=== PATIENT | male | born 1955 | race Caucasian/White ===

== ENCOUNTER 2021-07-05 14:55 | Observation (INO) ==
[2021-07-05] MEDS ORDERED: ACETAMINOPHEN 1,000 MG/100 ML VIAL IV STA (16:05)
[2021-07-05] MEDS ORDERED: fentaNYL citrate 100 MCG/2 ML VIAL IV STA (16:05)
[2021-07-05] MEDS ORDERED: fentaNYL citrate 100 MCG/2 ML VIAL IV PRN (16:05)
[2021-07-05] MEDS ORDERED: SODIUM CHLORIDE 0.9% 1000ML 1,000 ML IV ONE ×2 (16:05→18:03)
--- NOTE | 2021-07-05 16:07 | Emergency Department Note ---
History of Present Illness General Chief complaint: Abdominal Pain Stated complaint: CT SCAN FOR ABD PAIN, REFERRED BY DOCTOR Time Seen by Provider: 07/05/21 15:55 Source: patient Mode of arrival: ambulatory Limitations: no limitations History of Present Illness Provider complaint: abdominal pain Onset (ago): day(s) 6 Location: abdomen Severity: moderate Maximum Pain Intensity: 5 Current Pain Intensity: 5 Quality: + constant Relieved By: + none Exacerbated By: + eating Associated symptoms: + loss of appetite; no fever/chills or no nausea/vomiting Treatments prior to arrival: other This is a 65-year-old male presents emergency department complaining of abdominal pain. Patient states abdominal pain began last . He had had a routine appointment already scheduled with his PCP for Thursday so he mentioned this during that visit. He was started on Cipro and Flagyl for presumed diverticulitis. Patient states the pain was in his left lower abdomen, otherwise nonradiating. Patient states his last episode of diverticulitis was in 1989. Patient denies any recent change in medications or diet leading up to this. He states since the abdominal pain began on despite the use of the antibiotics his pain is continued to be worse every day. States it is constant, and seems to now radiate from the left lower quadrant around the abdomen. He does admit to mild radiation of the pain into the back. States eating and drinking liquids makes it worse. He states he is passing gas, however has not had a bowel movement since early Thursday morning which was not normal at that time unless than usual. He states his last normal bowel movement was Thursday. He states he feels bloated and distended. He denies nausea, vomiting, fevers, chills. Patient has had prior inguinal hernia repair, no other additional abdominal surgeries. He denies any pain with urination although states his urine looks darker in color. Pt seen during a time of high acuity and national emergency pandemic while wearing PPE. Home Medications Medication Instructions Recorded Confirmed Type amitriptyline 50 mg tablet 100 mg PO HS 03/22/21 07/05/21 History atorvastatin 20 mg tablet (Lipitor) 20 mg PO HS 03/22/21 07/05/21 History coenzyme Q10 100 mg capsule 200 mg PO QAM 03/22/21 07/05/21 History (CoQ-10) hydrochlorothiazide 25 mg tablet 25 mg PO QPM 03/22/21 07/05/21 History losartan 100 mg tablet 100 mg PO HS 03/22/21 07/05/21 History metformin 500 mg tablet 1,000 mg PO BID 03/22/21 07/05/21 History cjrmbpjsubhd-rlccsmki-xyfrrp tablet 1 tab PO DAILY 03/22/21 07/05/21 History omega-3 acid ethyl esters 1 gram 2 cap PO BID 03/22/21 07/05/21 History capsule (Lovaza) ciprofloxacin HCl 500 mg tablet 500 mg PO BID 07/05/21 07/05/21 History famotidine 40 mg tablet 40 mg PO DAILY 07/05/21 07/05/21 History metronidazole 500 mg tablet 500 mg PO TID 07/05/21 07/05/21 History sitagliptin 100 mg tablet (Januvia) 100 mg PO DAILY 07/05/21 07/05/21 History Allergies Allergy/AdvReac Type Severity Reaction Status Date / Time trazodone AdvReac Intermediate BAD Verified 07/05/21 15:39 DREAMS, HEART PALPITATIONS Past Med/Surg History Medical History (Updated 07/05/21 @ 23:39 by Diane Pereira DO) HTN (hypertension) Hypercholesteremia Pre-diabetes Surgical History History of cataract surgery right History of colonoscopy History of hernia surgery Family History Mother Family history of diabetes mellitus Social History Smoking Status: Never smoker Second Hand Exposure: No; Hx Alcohol Use: Yes Hx Substance Use: No Preferred Language: Polish Communication Ability: Effective 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 Beliefs That Will Affect Care: None Current Living Situation: Spouse Feels Safe at Home: Yes Assistive Devices: Denture - Upper and Denture - Lower Review of Systems A total of 10 systems reviewed and were otherwise negative All systems reviewed & are unremarkable except as noted in HPI & below Physical Exam Vital Signs Vital Signs - 24 hr 07/05/21 14:56 07/05/21 14:59 07/05/21 15:23 Temperature 36.7 C Temperature Source Oral Pulse Rate 95 H 90 Pulse Rate [Left Finger] 87 Pulse Rate from SpO2 Sensor 90 Pulse Rhythm Regular Pulse Rhythm [Left Finger] Regular Pulse Strength Normal Pulse Strength [Left Finger] Normal Respiratory Rate 20 18 18 Respiratory Effort / Characteristics Non-Labored Non-Labored Spontaneous Respiratory Depth Normal Normal Respiratory Pattern Regular Blood Pressure 159/96 H Blood Pressure Mean 117 Blood Pressure Position Sitting Blood Pressure Position [Right Arm] Lying Pulse Oximetry 96 98 97 Oxygen Delivery Method Room Air Room Air Sepsis Recent Fever Within 48 Hours No Sepsis New/Unexplained Change in Mental Status No Sepsis Action Taken by Nursing No Action Required 07/05/21 15:30 07/05/21 15:40 07/05/21 15:50 Temperature Temperature Source Pulse Rate 88 89 86 Pulse Rate [Left Finger] Pulse Rate from SpO2 Sensor 87 88 87 Pulse Rhythm Pulse Rhythm [Left Finger] Pulse Strength Pulse Strength [Left Finger] Respiratory Rate 15 20 19 Respiratory Effort / Characteristics Respiratory Depth Respiratory Pattern Blood Pressure Blood Pressure Mean Blood Pressure Position Blood Pressure Position [Right Arm] Pulse Oximetry 96 95 95 Oxygen Delivery Method Sepsis Recent Fever Within 48 Hours Sepsis New/Unexplained Change in Mental Status Sepsis Action Taken by Nursing 07/05/21 16:00 07/05/21 16:10 07/05/21 16:20 Temperature Temperature Source Pulse Rate 85 86 89 Pulse Rate [Left Finger] Pulse Rate from SpO2 Sensor 85 88 89 Pulse Rhythm Pulse Rhythm [Left Finger] Pulse Strength Pulse Strength [Left Finger] Respiratory Rate 18 20 21 Respiratory Effort / Characteristics Respiratory Depth Respiratory Pattern Blood Pressure Blood Pressure Mean Blood Pressure Position Blood Pressure Position [Right Arm] Pulse Oximetry 96 94 95 Oxygen Delivery Method Sepsis Recent Fever Within 48 Hours Sepsis New/Unexplained Change in Mental Status Sepsis Action Taken by Nursing 07/05/21 16:30 07/05/21 16:40 07/05/21 16:50 Temperature Temperature Source Pulse Rate 88 85 78 Pulse Rate [Left Finger] Pulse Rate from SpO2 Sensor 87 86 78 Pulse Rhythm Pulse Rhythm [Left Finger] Pulse Strength Pulse Strength [Left Finger] Respiratory Rate 25 H 21 16 Respiratory Effort / Characteristics Respiratory Depth Respiratory Pattern Blood Pressure Blood Pressure Mean Blood Pressure Position Blood Pressure Position [Right Arm] Pulse Oximetry 95 94 97 Oxygen Delivery Method Sepsis Recent Fever Within 48 Hours Sepsis New/Unexplained Change in Mental Status Sepsis Action Taken by Nursing 07/05/21 17:00 07/05/21 17:10 07/05/21 17:20 Temperature Temperature Source Pulse Rate 76 77 72 Pulse Rate [Left Finger] Pulse Rate from SpO2 Sensor 76 77 72 Pulse Rhythm Pulse Rhythm [Left Finger] Pulse Strength Pulse Strength [Left Finger] Respiratory Rate 19 20 22 Respiratory Effort / Characteristics Respiratory Depth Respiratory Pattern Blood Pressure 149/86 H Blood Pressure Mean 107 Blood Pressure Position Blood Pressure Position [Right Arm] Pulse Oximetry 95 96 98 Oxygen Delivery Method Sepsis Recent Fever Within 48 Hours Sepsis New/Unexplained Change in Mental Status Sepsis Action Taken by Nursing 07/05/21 17:30 07/05/21 17:40 07/05/21 17:50 Temperature Temperature Source Pulse Rate 75 75 74 Pulse Rate [Left Finger] Pulse Rate from SpO2 Sensor 75 75 74 Pulse Rhythm Pulse Rhythm [Left Finger] Pulse Strength Pulse Strength [Left Finger] Respiratory Rate 21 15 18 Respiratory Effort / Characteristics Respiratory Depth Respiratory Pattern Blood Pressure Blood Pressure Mean Blood Pressure Position Blood Pressure Position [Right Arm] Pulse Oximetry 97 97 97 Oxygen Delivery Method Sepsis Recent Fever Within 48 Hours Sepsis New/Unexplained Change in Mental Status Sepsis Action Taken by Nursing 07/05/21 18:00 07/05/21 18:10 07/05/21 18:20 Temperature Temperature Source Pulse Rate 71 71 71 Pulse Rate [Left Finger] Pulse Rate from SpO2 Sensor 71 71 71 Pulse Rhythm Pulse Rhythm [Left Finger] Pulse Strength Pulse Strength [Left Finger] Respiratory Rate 19 22 18 Respiratory Effort / Characteristics Respiratory Depth Respiratory Pattern Blood Pressure Blood Pressure Mean Blood Pressure Position Blood Pressure Position [Right Arm] Pulse Oximetry 98 97 98 Oxygen Delivery Method Sepsis Recent Fever Within 48 Hours Sepsis New/Unexplained Change in Mental Status Sepsis Action Taken by Nursing 07/05/21 18:30 07/05/21 18:40 07/05/21 19:57 Temperature Temperature Source Pulse Rate 71 74 77 Pulse Rate [Left Finger] Pulse Rate from SpO2 Sensor 72 76 78 Pulse Rhythm Pulse Rhythm [Left Finger] Pulse Strength Pulse Strength [Left Finger] Respiratory Rate 17 19 26 H Respiratory Effort / Characteristics Respiratory Depth Respiratory Pattern Blood Pressure 150/79 H 165/95 H Blood Pressure Mean 102 118 Blood Pressure Position Blood Pressure Position [Right Arm] Pulse Oximetry 98 95 99 Oxygen Delivery Method Sepsis Recent Fever Within 48 Hours Sepsis New/Unexplained Change in Mental Status Sepsis Action Taken by Nursing 07/05/21 20:00 07/05/21 20:10 07/05/21 20:20 Temperature Temperature Source Pulse Rate 78 79 77 Pulse Rate [Left Finger] Pulse Rate from SpO2 Sensor 78 79 75 Pulse Rhythm Pulse Rhythm [Left Finger] Pulse Strength Pulse Strength [Left Finger] Respiratory Rate 18 18 22 Respiratory Effort / Characteristics Respiratory Depth Respiratory Pattern Blood Pressure Blood Pressure Mean Blood Pressure Position Blood Pressure Position [Right Arm] Pulse Oximetry 97 97 96 Oxygen Delivery Method Sepsis Recent Fever Within 48 Hours Sepsis New/Unexplained Change in Mental Status Sepsis Action Taken by Nursing 07/05/21 20:30 07/05/21 20:40 07/05/21 20:50 Temperature Temperature Source Pulse Rate 73 78 77 Pulse Rate [Left Finger] Pulse Rate from SpO2 Sensor 74 77 77 Pulse Rhythm Pulse Rhythm [Left Finger] Pulse Strength Pulse Strength [Left Finger] Respiratory Rate 24 23 23 Respiratory Effort / Characteristics Respiratory Depth Respiratory Pattern Blood Pressure Blood Pressure Mean Blood Pressure Position Blood Pressure Position [Right Arm] Pulse Oximetry 97 97 100 Oxygen Delivery Method Sepsis Recent Fever Within 48 Hours Sepsis New/Unexplained Change in Mental Status Sepsis Action Taken by Nursing 07/05/21 21:00 Temperature Temperature Source Pulse Rate 74 Pulse Rate [Left Finger] Pulse Rate from SpO2 Sensor 75 Pulse Rhythm Pulse Rhythm [Left Finger] Pulse Strength Pulse Strength [Left Finger] Respiratory Rate 19 Respiratory Effort / Characteristics Respiratory Depth Respiratory Pattern Blood Pressure Blood Pressure Mean Blood Pressure Position Blood Pressure Position [Right Arm] Pulse Oximetry 98 Oxygen Delivery Method Sepsis Recent Fever Within 48 Hours Sepsis New/Unexplained Change in Mental Status Sepsis Action Taken by Nursing GENERAL: alert, well appearing, well nourished, no distress, non-toxic EYE EXAM: normal conjunctiva, PERRL and EOM's grossly intact OROPHARYNX: no exudate, no erythema, lips, buccal mucosa, and tongue normal and mucous membranes are moist NECK: supple, no nuchal rigidity, no adenopathy, non-tender LUNGS: Clear to auscultation. Normal chest wall mechanics, no w/r/r HEART: no murmurs, S1 normal and S2 normal ABDOMEN: abdomen soft, generalized tenderness with palpation, worse in the left lower quadrant, normo-active bowel sounds, no masses, no rebound or guarding. BACK: Back is symmetrical on inspection and there is no deformity, no midline tenderness, no CVA tenderness. SKIN: no rashes and no bruising UPPER EXTREMITIES: upper extremities are grossly normal. FROM, nml pulses b/l. LOWER EXTREMITIES: No pitting edema. FROM, nml pulses b/l. NEURO EXAM: Normal sensorium, cranial nerves II-XII grossly intact, normal speech, no gross weakness of arms, no gross weakness of legs. Gross sensation intact. Course Course 2002: Patient updated on results. States pain is improved. Denies any use of alcohol. Administered Medications Discontinued Medications Bisacodyl (Bisacodyl 10 Mg Supp) 10 mg PA NOW STA Stop: 07/05/21 21:31 Last Admin: 07/05/21 21:39 Dose: Not Given Documented by: [id number] Fentanyl Citrate (Fentanyl Citrate 100 Mcg/2 Ml Vial) 50 mcg IV NOW STA Stop: 07/05/21 16:06 Last Admin: 07/05/21 16:32 Dose: 50 mcg Documented by: [id number] Sodium Chloride (Nss 1000ml) 1,000 mls @ 999 mls/hr IV .Q1H1M ONE Stop: 07/05/21 17:05 Last Infusion: 07/05/21 23:22 Dose: 0 mls/hr Documented by: [id number] Admin: 07/05/21 16:32 Dose: 999 mls/hr Documented by: [id number] Acetaminophen (Ofirmev) 1,000 mg in 100 mls @ 400 mls/hr IV NOW STA Stop: 07/05/21 16:19 Last Admin: 07/05/21 16:35 Dose: 400 mls/hr Documented by: [id number] Sodium Chloride (Nss 1000ml) 1,000 mls @ 999 mls/hr IV .Q1H1M ONE Stop: 07/05/21 19:03 Last Infusion: 07/05/21 23:23 Dose: 0 mls/hr Documented by: [id number] Admin: 07/05/21 18:11 Dose: 999 mls/hr Documented by: [id number] Sodium Chloride (Nss 1000ml) 1,000 mls @ 125 mls/hr IV .Q8H KALPESH Stop: 08/04/21 20:14 Last Admin: 07/05/21 20:28 Dose: 125 mls/hr Documented by: [id number] Ioversol (Optiray 320 100ml) 94 ml IV ONCE ONE Stop: 07/05/21 19:02 Last Admin: 07/05/21 19:01 Dose: 94 ml Documented by: [id number] Medical Decision Making Differential Diagnosis Differential diagnoses includes but is not limited to gastritis, peptic ulcer disease, GERD, gallbladder disease, pancreatitis, small bowel obstruction, acute coronary syndrome, pericarditis, ischemic bowel, irritable bowel disease, irritable bowel syndrome, appendicitis, diverticulitis, malignancy, hernia, urinary tract infection, torsion, [/ectopic (if female)], perforation, trauma, infectious. Medical Records Attestation: I reviewed the patient's medical records. Home Medications Current Medication List: was personally reviewed by me Laboratory Data Attestation: I reviewed the patient's lab results. Result diagrams: 07/05/21 16:23 07/05/21 16:23 Lab Results 07/05/21 07/05/21 07/05/21 Range/Units 16:23 16:23 16:46 WBC 10.10 (4.8-10.8) K/uL RBC 5.06 (4.7-6.1) M/uL Hgb 15.1 (14.0-18.0) g/dL Hct 44.3 (42-52) % MCV 87.5 (80-100) fL MCH 29.8 (25-34) pg MCHC 34.1 (32-36) g/dL RDW Std Deviation 40.7 (36.4-46.3) fL RDW Coeff of John 12.7 (11.5-14.5) % Plt Count 316 (130-400) K/uL MPV 9.7 (7.4-10.4) fL Immature Gran % (Auto) 0.1 % Neut % (Auto) 59.3 % Lymph % (Auto) 25.0 % [place] % (Auto) 12.3 % Eos % (Auto) 2.8 % Baso % (Auto) 0.5 % Neut # (Auto) 5.99 (1.4-6.5) K/uL Lymph # (Auto) 2.53 (1.2-3.4) K/uL [place] # (Auto) 1.24 H (0.11-0.59) K/uL Eos # (Auto) 0.28 (0-0.5) K/uL Baso # (Auto) 0.05 (0-0.2) K/uL Immature Gran # (Auto) 0.01 (0.00-0.02) K/uL Sodium 137 (136-145) mmol/L Potassium 4.0 (3.5-5.1) mmol/L Chloride 99 (98-107) mmol/L Carbon Dioxide 30 (21-32) mmol/L Anion Gap 8.0 (3-11) BUN 22 H (7-18) mg/dl Creatinine 1.59 H (0.6-1.4) mg/dl Est Cr Clr Drug Dosing 54.7 ml/min Est GFR ( Amer) 51.3 ml/min Est GFR (Non-Af Amer) 44.3 ml/min BUN/Creatinine Ratio 13.5 (10-20) Glucose 185 H (70-99) mg/dl Lactate 2.9 H* (0.4-2.0) mmol/L Calcium 10.6 H (8.5-10.1) mg/dl Total Bilirubin 0.5 (0.2-1) mg/dl AST 37 (15-37) U/L ALT 44 (12-78) Alkaline Phosphatase 45 (45-117) U/L Total Protein 8.5 H (6.4-8.2) gm/dl Albumin 4.2 (3.4-5.0) gm/dl Globulin 4.3 H (2.5-4.0) gm/dl Albumin/Globulin Ratio 1.0 (0.9-2) Lipase 440 H (73-393) U/L // Range/Units 18:47 WBC (4.8-10.8) K/uL RBC (4.7-6.1) M/uL Hgb (14.0-18.0) g/dL Hct (42-52) % MCV (80-100) fL MCH (25-34) pg MCHC (32-36) g/dL RDW Std Deviation (36.4-46.3) fL RDW Coeff of John (11.5-14.5) % Plt Count (130-400) K/uL MPV (7.4-10.4) fL Immature Gran % (Auto) % Neut % (Auto) % Lymph % (Auto) % [place] % (Auto) % Eos % (Auto) % Baso % (Auto) % Neut # (Auto) (1.4-6.5) K/uL Lymph # (Auto) (1.2-3.4) K/uL [place] # (Auto) (0.11-0.59) K/uL Eos # (Auto) (0-0.5) K/uL Baso # (Auto) (0-0.2) K/uL Immature Gran # (Auto) (0.00-0.02) K/uL Sodium (136-145) mmol/L Potassium (3.5-5.1) mmol/L Chloride (98-107) mmol/L Carbon Dioxide (21-32) mmol/L Anion Gap (3-11) BUN (7-18) mg/dl Creatinine (0.6-1.4) mg/dl Est Cr Clr Drug Dosing ml/min Est GFR ( Amer) ml/min Est GFR (Non-Af Amer) ml/min BUN/Creatinine Ratio (10-20) Glucose (70-99) mg/dl Lactate 2.5 H* (0.4-2.0) mmol/L Calcium (8.5-10.1) mg/dl Total Bilirubin (0.2-1) mg/dl AST (15-37) U/L ALT (12-78) Alkaline Phosphatase (45-117) U/L Total Protein (6.4-8.2) gm/dl Albumin (3.4-5.0) gm/dl Globulin (2.5-4.0) gm/dl Albumin/Globulin Ratio (0.9-2) Lipase (73-393) U/L Imaging Data Radiologist's Impression: Abdomen/Pelvis CT 07/05/21 16:[address] WITH IV AND ORAL CONTRAST CT DOSE: 1032.81 mGy.cm HISTORY: Acute generalized abdominal pain abd pain 1 wk, recent dx diverticulitis TECHNIQUE: Multiaxial CT images of the abdomen and pelvis were performed following the IV administration of 94 cc of Optiray and oral contrast. A dose lowering technique was utilized adhering to the principles of ALARA. COMPARISON STUDY: CT abdomen and pelvis 10/18/2015 FINDINGS: The imaged inferior cardiac chambers are unremarkable. Partially imaged coronary artery calcifications. Minimal bibasilar atelectasis. No pneumatosis or pneumoperitoneum. Unremarkable spleen, gallbladder and adrenal glands. Mild inflammatory stranding involves the pancreatic head and uncinate process. No pancreatic mass or ductal dilation. Mild wall thickening of the adjacent duodenum, likely reactive. No intrahepatic or extrahepatic biliary ductal dilation. Patent portal vein. Hepatic steatosis. Mild nonspecific bilateral perinephric stranding. There are a few hypodensities of the kidneys during up to 8 mm within the inferior pole right kidney, too small to characterize however suggestive of probable cysts. No hydronephrosis. Mild prostamegaly. Partial distention of the urinary bladder with mild wall thickening. Atherosclerosis of the aorta without aneurysm. No adenopathy. No bowel obstruction. Moderate fecal retention. Colonic diverticulosis without acute diverticulitis. Small fat filled right inguinal hernia contains a noninflamed appendix. Postoperative changes of the left inguinal canal. Degenerative changes of the spine, pelvis and hips. IMPRESSION: 1. Subtle inflammatory stranding involving the pancreatic head and uncinate process is suggestive of acute pancreatitis. Correlate with serum lipase. 2. No pancreatic mass, biliary or pancreatic ductal dilation. 3. No bowel obstruction or bowel wall thickening. 4. Small fat filled right inguinal hernia contains the noninflamed appendix. 5. Additional findings as above. ACT 112: Negative or not required by law. The above report was generated using voice recognition software. It may contain grammatical, syntax or spelling errors. Electronically signed by: Arvin Subramanian M.D. 07/05/2021 7:35 PM MDM Narrative This is a 65-year-old male who presents with worsening abdominal pain in the setting of recent outpatient presumptive diagnosis of diverticulitis with ongoing treatment of Cipro/Flagyl. Patient does admit to decreased oral intake as he felt that this would increase his discomfort. He has had accompanying constipation. is concerned about his dehydration as well. Patient was still taking his antibiotics as prescribed however pain was becoming more severe and spreading across the abdomen. Labs drawn and sent revealed an elevated lactic acid level and mildly elevated lipase. CT of the abdomen and pelvis showed acute pancreatitis. No evidence of acute diverticulitis, perforation, or abscess at this time. No evidence of bowel obstruction or colitis. Patient denies any use of alcohol. No mention on CT of any abnormalities noted at the gallbladder. Patient denies any prior episodes of pancreatitis. Hyperglycemia was noted, no evidence of DKA. Due to concern for ability to stay hydrated, pain control, elevated lactic acid, and unclear etiology of the pancreatitis, discussed options for disposition with the patient and his family. Case was discussed with the hospitalist for additional inpatient evaluation and management. Pt seen during a time of high acuity and national emergency pandemic while wearing PPE. Impression & Plan Abdominal pain, Pancreatitis, GERA (acute kidney injury), Elevated lactic acid level, Hyperglycemia Discharge Plan Visit Data Chief Complaint: Abdominal Pain Stated Complaint: CT SCAN FOR ABD PAIN, REFERRED BY DOCTOR ED Provider: Diane Pereira Discharge Problem: Abdominal pain, Pancreatitis, GERA (acute kidney injury), Elevated lactic acid level, Hyperglycemia Discharge Instructions Interventions: ED Discharge Assessment Last Done: 07/05/21 22:59 Discharge Problem: Abdominal pain Qualifiers: Abdominal location: generalized Qualified Code(s): R10.84 - Generalized abdominal pain Pancreatitis Qualifiers: Chronicity: acute Pancreatitis type: unspecified pancreatitis type Acute pancreatitis complication: no infection or necrosis Qualified Code(s): K85.90 - Acute pancreatitis without necrosis or infection, unspecified
[2021-07-05 16:33] LABS: Basophils # (auto) 0.05 K/uL (0-0.2); Basophils % (auto) 0.5 %; Eosinophils # (auto) 0.28 K/uL (0-0.5); Eosinophils % (auto) 2.8 %; Hematocrit (blood only) 44.3 % (42-52); Hemoglobin 15.1 g/dL (14.0-18.0); Immature Granulocytes # (auto) 0.01 K/uL (0.00-0.02); Immature Granulocytes % (auto) 0.1 %; Lymphocytes # (auto) 2.53 K/uL (1.2-3.4); Mean Corpuscular Hemoglobin 29.8 pg (25-34); Mean Corpuscular Hgb Conc 34.1 g/dL (32-36); Mean Corpuscular Volume 87.5 fL (80-100); Mean Platelet Volume 9.7 fL (7.4-10.4); Monocytes # (auto) 1.24 K/uL (0.11-0.59); Monocytes % (auto) 12.3 %; Neutrophils # (auto) 5.99 K/uL (1.4-6.5); Neutrophils % (auto) 59.3 %; Platelet Count 316 K/uL (130-400); RDW Coefficient of Variation 12.7 % (11.5-14.5); RDW Standard Deviation 40.7 fL (36.4-46.3); Red Blood Count 5.06 M/uL (4.7-6.1)
[2021-07-05 16:49] LABS: Albumin Level 4.2 gm/dl (3.4-5.0); BUN Creatinine Ratio 13.5 (10-20); Calcium 10.6 mg/dl (8.5-10.1); Creatinine Clr Calc Pharmacy 54.7 ml/min; Est GFR (African American) 51.3 ml/min; Est GFR (Non-African American) 44.3 ml/min
[2021-07-05 16:52] LABS: Bilirubin,Total 0.5 mg/dl (0.2-1); Globulin 4.3 gm/dl (2.5-4.0); Total Protein 8.5 gm/dl (6.4-8.2)
[2021-07-05 18:25] LABS: Appearance Urine Clear (Clear); Bilirubin Urine Negative (Negative); Blood Urine Negative (Negative); Color Urine Dark Yellow; Glucose Urine UA 3+ (Negative); Ketones Urine Trace (Negative); Leukocyte Esterase Urine Negative (Negative); Nitrite Urine Negative (Negative); Protein Urine Negative (Negative); Specific Gravity Urine 1.026 (1.000-1.030); Urobilinogen Urine Negative (Negative); pH Urine 5.5 (4.5-7.5)
[2021-07-05] MEDS ORDERED: OPTIRAY 320 100ml IV ONE (19:01)
--- NOTE | 2021-07-05 19:36 | CT Scan Report ---
ABDOMEN AND PELVIS CT WITH IV AND ORAL CONTRAST CT DOSE: 1032.81 mGy.cm HISTORY: Acute generalized abdominal pain abd pain 1 wk, recent dx diverticulitis TECHNIQUE: Multiaxial CT images of the abdomen and pelvis were performed following the IV administrat ion of 94 cc of Optiray and oral contrast. A dose lowering technique was utilized adhering to the pr inciples of NAEEM. COMPARISON STUDY: CT abdomen and pelvis 10/18/2015 FINDINGS: The imaged inferior cardiac chambers are unremarkable. Partially imaged coronary artery calcification s. Minimal bibasilar atelectasis. No pneumatosis or pneumoperitoneum. Unremarkable spleen, gallbladde r and adrenal glands. Mild inflammatory stranding involves the pancreatic head and uncinate process. No pancreatic mass or ductal dilation. Mild wall thickening of the adjacent duodenum, likely reactive . No intrahepatic or extrahepatic biliary ductal dilation. Patent portal vein. Hepatic steatosis. Mild nonspecific bilateral perinephric stranding. There are a few hypodensities of the kidneys during up to 8 mm within the inferior pole right kidney, too small to characterize however suggestive of pr obable cysts. No hydronephrosis. Mild prostamegaly. Partial distention of the urinary bladder with mi ld wall thickening. Atherosclerosis of the aorta without aneurysm. No adenopathy. No bowel obstructio n. Moderate fecal retention. Colonic diverticulosis without acute diverticulitis. Small fat filled ri ght inguinal hernia contains a noninflamed appendix. Postoperative changes of the left inguinal canal . Degenerative changes of the spine, pelvis and hips. IMPRESSION: 1. Subtle inflammatory stranding involving the pancreatic head and uncinate process is suggestive of acute pancreatitis. Correlate with serum lipase. 2. No pancreatic mass, biliary or pancreatic ductal dilation. 3. No bowel obstruction or bowel wall thickening. 4. Small fat filled right inguinal hernia contains the noninflamed appendix. 5. Additional findings as above. ACT 112: Negative or not required by law. The above report was generated using voice recognition software. It may contain grammatical, syntax o r spelling errors. Electronically signed by: Arvin Subramanian M.D. 07/05/2021 7:35 PM
[2021-07-05] MEDS ORDERED: SODIUM CHLORIDE 0.9% 1000ML 1,000 ML IV SCH (20:15)
[2021-07-05] MEDS ORDERED: POLYETHYLENE (MIRALAX) 17 GM PACK PO PRN (21:06)
[2021-07-05] MEDS ORDERED: ONDANSETRON INJ 2 MG/ML 2 ML VIAL IV PRN (21:06)
[2021-07-05] MEDS ORDERED: bisacodyL 10 MG SUPP PR STA (21:30)
--- NOTE | 2021-07-05 21:39 | History & Physical Report ---
Date of Service July 05, 2021 Assessment & Plan (1) Abdominal pain: Plan: -Fecal retention versus acute pancreatitis versus diverticulitis -Pain controlled with fentanyl in the ED, transition to p.o. Tylenol for mild to moderate pain, IV morphine for severe pain. -Per history seems that abdominal pain is most likely associated with fecal retention noted in abdominal CT in ED. -Patient had large bowel movement in ED which did provide some relief. -N.p.o. given there was evidence on CT of acute pancreatitis, see below -IV hydration with lactated Ringer's at 125 mL/h, stop after 2 bags. (2) Acute pancreatitis: Plan: -Evidence of acute pancreatitis found on CT, mildly elevated lipase at 440, and abdominal pain that could be suggestive of pancreatitis -N.p.o. with bowel rest -IV hydration with lactated Ringer's at 125 mL/h, stop after 2 bags -Trend a.m. CBC and BMP (3) Diverticulosis: Plan: -There is no evidence of diverticulitis on CT performed in ED -Discontinued ciprofloxacin and Flagyl (4) Diabetes mellitus: Plan: -Last known A1c to be 8 -Discontinued Metformin and Januvia, began 5 units Lantus twice daily with sliding scale (5) Hypercholesteremia: Plan: -Continue atorvastatin (6) HTN (hypertension): Plan: -Continue losartan and hydrochlorothiazide (7) High serum lactate: Plan: -At this time suspect to be due to decreased oral intake -Hold Metformin while in hospital -Recheck lactate in a.m. after receiving fluids Dispo: MedSurg Diet: N.p.o. DVT prophylaxis: SCDs Code: Full code History of Present Illness Chief Complaint: Abdominal pain Primary Care Provider: Isidro Tomas Patient is a 65-year-old male with past medical history of DM 2, BPH, diverticulosis, hypertension, and hyperlipidemia being admitted to the hospital for observation for the chief complaint of abdominal pain. Patient reports that for the past week he has been having progressively worsening abdominal pain that is localized to the left lower quadrant He had gone to his PCP to be evaluated where he was clinically diagnosed with diverticulitis and was started on Cipro and Flagyl. He noticed that on Thursday that his pain was getting worse even after starting the antibiotics. Yesterday he reported that he noticed he had not had a bowel movement since Thursday and had taken 2 senna tablets to try make himself go to the bathroom. He reports his abdominal pain does get worse with food and it is localized to the left lower quadrant. Reports that when he came to the ED his abdominal pain was a 7-8 out of 10 and is currently a 4 out of 10 after receiving fentanyl. Patient does report a history of diverticulosis with his most recent episode of diverticulitis being in 1989. He reports he has not changed his diet and has not started any new medications other than the antibiotics he was prescribed by Dr. Tomas. He does report that he does have frequent bouts of constipation and notes that he consistently does not have a bowel movement every day. His regular schedule is upwards to every other day. Denies any recent bloody stools, fever, chills, nausea, vomiting, chest pain, shortness of breath. Patient reports no other complaints at this time. Allergies Allergy/AdvReac Type Severity Reaction Status Date / Time trazodone AdvReac Intermediate BAD Verified 07/05/21 15:39 DREAMS, HEART PALPITATIONS Home Medications Medication Instructions Recorded Confirmed Type amitriptyline 50 mg tablet 100 mg PO HS 03/22/21 07/05/21 History atorvastatin 20 mg tablet (Lipitor) 20 mg PO HS 03/22/21 07/05/21 History coenzyme Q10 100 mg capsule 200 mg PO QAM 03/22/21 07/05/21 History (CoQ-10) hydrochlorothiazide 25 mg tablet 25 mg PO QPM 03/22/21 07/05/21 History losartan 100 mg tablet 100 mg PO HS 03/22/21 07/05/21 History metformin 500 mg tablet 1,000 mg PO BID 03/22/21 07/05/21 History blyjclapzxbl-ouaavfcd-hprngg tablet 1 tab PO DAILY 03/22/21 07/05/21 History omega-3 acid ethyl esters 1 gram 2 cap PO BID 03/22/21 07/05/21 History capsule (Lovaza) ciprofloxacin HCl 500 mg tablet 500 mg PO BID 07/05/21 07/05/21 History famotidine 40 mg tablet 40 mg PO DAILY 07/05/21 07/05/21 History metronidazole 500 mg tablet 500 mg PO TID 07/05/21 07/05/21 History sitagliptin 100 mg tablet (Januvia) 100 mg PO DAILY 07/05/21 07/05/21 History Past Med/Surg History Medical History (Updated 07/05/21 @ 22:03 by Amari Garcia DO) HTN (hypertension) Hypercholesteremia Pre-diabetes Surgical History History of cataract surgery right History of colonoscopy History of hernia surgery Family History Mother Family history of diabetes mellitus Social History Smoking Status: Never smoker Second Hand Exposure: No; Hx Alcohol Use: Yes Hx Substance Use: No Preferred Language: Malian Communication Ability: Effective Barrel Lathe Operator Required: No Beliefs That Will Affect Care: None Current Living Situation: Spouse Feels Safe at Home: Yes Assistive Devices: Denture - Upper and Denture - Lower Review of Systems Review of Systems: All systems reviewed & are unremarkable except as noted in HPI & below Physical Exam Constitutional: well developed, well nourished and cooperative; no acute distress Eyes: + anicteric sclerae Neck: trachea midline, no thyromegaly Respiratory: normal respiratory effort, lungs clear to auscultation Cardiovascular: RRR, no murmur, no edema Gastrointestinal (Abdomen): Percussion/Palpation: no hepatosplenomegaly Tenderness to palpation of the left lower quadrant with associated dullness to percussion. Abdomen is soft diffusely. There are no peritoneal signs present. Dumont sign negative. No tenderness appreciated at the McBurney point. Skin: no rashes, warm and dry Neurologic: moves all extremities Psychiatric: A+Ox3, euthymic affect Results & Data Results & Data ([facility]) Vital Signs (Past 12 Hours) Vital Signs Temp Pulse Pulse Resp BP Pulse Ox 07/05/21 18:40 74 19 150/79 H 95 07/05/21 18:30 71 17 98 07/05/21 18:20 71 18 98 07/05/21 18:10 71 22 97 07/05/21 18:00 71 19 98 07/05/21 17:50 74 18 97 07/05/21 17:40 75 15 97 07/05/21 17:30 75 21 97 07/05/21 17:20 72 22 98 07/05/21 17:10 77 20 149/86 H 96 07/05/21 17:00 76 19 95 07/05/21 16:50 78 16 97 07/05/21 16:40 85 21 94 07/05/21 16:30 88 25 H 95 07/05/21 16:20 89 21 95 07/05/21 16:10 86 20 94 07/05/21 16:00 85 18 96 07/05/21 15:50 86 19 95 07/05/21 15:40 89 20 95 07/05/21 15:30 88 15 96 07/05/21 15:23 90 18 97 07/05/21 14:59 36.7 C 95 H 18 159/96 H 98 07/05/21 14:56 87 20 96 Laboratory Results Laboratory Results WBC 10.10 K/uL (4.8-10.8) 07/05/21 16:23 RBC 5.06 M/uL (4.7-6.1) 07/05/21 16:23 Hgb 15.1 g/dL (14.0-18.0) 07/05/21 16:23 Hct 44.3 % (42-52) 07/05/21 16:23 MCV 87.5 fL (80-100) 07/05/21 16:23 MCH 29.8 pg (25-34) 07/05/21 16:23 MCHC 34.1 g/dL (32-36) 07/05/21 16:23 RDW Std Deviation 40.7 fL (36.4-46.3) 07/05/21 16:23 RDW Coeff of John 12.7 % (11.5-14.5) 07/05/21 16:23 Plt Count 316 K/uL (130-400) 07/05/21 16:23 MPV 9.7 fL (7.4-10.4) 07/05/21 16:23 Immature Gran % (Auto) 0.1 % 07/05/21 16:23 Neut % (Auto) 59.3 % 07/05/21 16:23 Lymph % (Auto) 25.0 % 07/05/21 16:23 Casey % (Auto) 12.3 % 07/05/21 16:23 Eos % (Auto) 2.8 % 07/05/21 16:23 Baso % (Auto) 0.5 % 07/05/21 16:23 Neut # (Auto) 5.99 K/uL (1.4-6.5) 07/05/21 16:23 Lymph # (Auto) 2.53 K/uL (1.2-3.4) 07/05/21 16:23 Casey # (Auto) 1.24 K/uL (0.11-0.59) H 07/05/21 16:23 Eos # (Auto) 0.28 K/uL (0-0.5) 07/05/21 16:23 Baso # (Auto) 0.05 K/uL (0-0.2) 07/05/21 16:23 Immature Gran # (Auto) 0.01 K/uL (0.00-0.02) 07/05/21 16:23 Sodium 137 mmol/L (136-145) 07/05/21 16:23 Potassium 4.0 mmol/L (3.5-5.1) 07/05/21 16:23 Chloride 99 mmol/L (98-107) 07/05/21 16:23 Carbon Dioxide 30 mmol/L (21-32) 07/05/21 16:23 Anion Gap 8.0 (3-11) 07/05/21 16:23 BUN 22 mg/dl (7-18) H 07/05/21 16:23 Creatinine 1.59 mg/dl (0.6-1.4) H 07/05/21 16:23 Est Cr Clr Drug Dosing 54.7 ml/min 07/05/21 16:23 Est GFR ( Amer) 51.3 ml/min 07/05/21 16:23 Est GFR (Non-Af Amer) 44.3 ml/min 07/05/21 16:23 BUN/Creatinine Ratio 13.5 (10-20) 07/05/21 16:23 Glucose 185 mg/dl (70-99) H 07/05/21 16:23 Lactate 2.5 mmol/L (0.4-2.0) H* 07/05/21 18:47 Calcium 10.6 mg/dl (8.5-10.1) H 07/05/21 16:23 Total Bilirubin 0.5 mg/dl (0.2-1) 07/05/21 16:23 AST 37 U/L (15-37) 07/05/21 16:23 ALT 44 (12-78) 07/05/21 16:23 Alkaline Phosphatase 45 U/L (45-117) 07/05/21 16:23 Total Protein 8.5 gm/dl (6.4-8.2) H 07/05/21 16:23 Albumin 4.2 gm/dl (3.4-5.0) 07/05/21 16:23 Globulin 4.3 gm/dl (2.5-4.0) H 07/05/21 16:23 Albumin/Globulin Ratio 1.0 (0.9-2) 07/05/21 16:23 Lipase 440 U/L (73-393) H 07/05/21 16:23 Urine Color Dark Yellow 07/05/21 Unknown Urine Appearance Clear (Clear) 07/05/21 Unknown Urine pH 5.5 (4.5-7.5) 07/05/21 Unknown Ur Specific [place] 1.026 (1.000-1.030) 07/05/21 Unknown Urine Protein Negative (Negative) 07/05/21 Unknown Urine Glucose (UA) 3+ (Negative) H 07/05/21 Unknown Urine Ketones Trace (Negative) H 07/05/21 Unknown Urine Blood Negative (Negative) 07/05/21 Unknown Urine Nitrite Negative (Negative) 07/05/21 Unknown Urine Bilirubin Negative (Negative) 07/05/21 Unknown Urine Urobilinogen Negative (Negative) 07/05/21 Unknown Ur Leukocyte Esterase Negative (Negative) 07/05/21 Unknown SARS-CoV-2, RNA, NAAT NEGATIVE (NEGATIVE) 07/05/21 Unknown Impressions Abdomen/Pelvis CT 07/05/21 16:[address] WITH IV AND ORAL CONTRAST CT DOSE: 1032.81 mGy.cm HISTORY: Acute generalized abdominal pain abd pain 1 wk, recent dx diverticulitis TECHNIQUE: Multiaxial CT images of the abdomen and pelvis were performed following the IV administration of 94 cc of Optiray and oral contrast. A dose lowering technique was utilized adhering to the principles of ALARA. COMPARISON STUDY: CT abdomen and pelvis 10/18/2015 FINDINGS: The imaged inferior cardiac chambers are unremarkable. Partially imaged coronary artery calcifications. Minimal bibasilar atelectasis. No pneumatosis or pneumoperitoneum. Unremarkable spleen, gallbladder and adrenal glands. Mild inflammatory stranding involves the pancreatic head and uncinate process. No pancreatic mass or ductal dilation. Mild wall thickening of the adjacent duodenum, likely reactive. No intrahepatic or extrahepatic biliary ductal dilation. Patent portal vein. Hepatic steatosis. Mild nonspecific bilateral perinephric stranding. There are a few hypodensities of the kidneys during up to 8 mm within the inferior pole right kidney, too small to characterize however suggestive of probable cysts. No hydronephrosis. Mild prostamegaly. Partial distention of the urinary bladder with mild wall thickening. Atherosclerosis of the aorta without aneurysm. No adenopathy. No bowel obstruction. Moderate fecal retention. Colonic diverticulosis without acute diverticulitis. Small fat filled right inguinal hernia contains a noninflamed appendix. Postoperative changes of the left inguinal canal. Degenerative changes of the spine, pelvis and hips. IMPRESSION: 1. Subtle inflammatory stranding involving the pancreatic head and uncinate process is suggestive of acute pancreatitis. Correlate with serum lipase. 2. No pancreatic mass, biliary or pancreatic ductal dilation. 3. No bowel obstruction or bowel wall thickening. 4. Small fat filled right inguinal hernia contains the noninflamed appendix. 5. Additional findings as above. ACT 112: Negative or not required by law. The above report was generated using voice recognition software. It may contain grammatical, syntax or spelling errors. Electronically signed by: Arvin Subramanian M.D. 07/05/2021 7:35 PM Code Status & VTE Plan VTE Prophylaxis Plan VTE Prophylaxis will be ordered: Yes Supervising Physician Co-Signing Physician Notes Patient seen and examined, chart reviewed, case discussed with Dr. Garcia and I agree with the assessment and plan as documented above. In brief, patient is a 65yo male presenting with abdominal pain - progressive over the last week - mostly in LLQ. He was started on Cipro and Flagyl for presumed diverticulitis. Pain has been worsening. Patient reports constipation as well. He denies fever, chills, nausea, vomiting. On exam he is afebrile, HD stable, NAD. Resting comfortably Skin - warm, dry, intact HEENT - NC/AT, PERRL, MMM, Neck supple Heart - +S1/S2, regular Lungs - CTA Abd - flat, normoactive bowel sounds, soft, tender in lower abdomen with deep palpation, no rebound/guarding/peritoneal signs, no epigastric or RUQ pain Ext - no edema Labs and images reviewed Assessment/Plan - -NPO, IVF and electrolyte repletion -Bowel regimen -Pain control -Will hold off on additional antibiotics at this time -Elevated lactate - patient is afebrile, HD stable and non-toxic, non-septic. CT with no evidence of bowel ischemia. Uncertain etiology of elevated lactate. ?Metformin use? 2.9 --> 2.5 after IVF. Repeat level in AM.
[2021-07-05] MEDS ORDERED: GLUCOSE 10 TABS/TUBE PO PRN (22:56)
[2021-07-05] MEDS ORDERED: CARBOHYDRATES FOR HYPOGLYCEMIA PO PRN (22:56)
[2021-07-05] MEDS ORDERED: DEXTROSE 50% 50 ML SYRINGE IV PRN (22:56)
[2021-07-05] MEDS ORDERED: ACETAMINOPHEN 325 MG TAB PO PRN (22:56)
[2021-07-05] MEDS ORDERED: GLUCOSE 40% GEL 15 GM TUBE PO PRN (22:56)
[2021-07-05] MEDS ORDERED: GLUCAGON FOR INJ 1 MG VIAL SQ PRN (22:56)
--- NOTE | 2021-07-05 23:21 | Billing Data ---
Date of Service July 05, 2021 Coding Level of Care Code INT OBSERVATION CARE 70M LVL 3
[2021-07-06] MEDS: LACTATED RINGER'S 1,000 ML IV SCH ×2 (00:09→08:42)
[2021-07-06] MEDS: INSULIN ASPART PER UNIT SC SCH ×5 (00:18→21:06)
[2021-07-06] MEDS: MoRPHine SULFATE 2 MG/ML CARP IV PRN ×2 (02:00→08:42)
[2021-07-06 07:53] LABS: Hematocrit (blood only) 37.1 % (42-52); Hemoglobin 12.6 g/dL (14.0-18.0); Mean Corpuscular Hemoglobin 29.9 pg (25-34); Mean Corpuscular Volume 87.9 fL (80-100); Mean Platelet Volume 9.5 fL (7.4-10.4); Platelet Count 230 K/uL (130-400); RDW Coefficient of Variation 12.7 % (11.5-14.5); Red Blood Count 4.22 M/uL (4.7-6.1); White Blood Count 7.86 K/uL (4.8-10.8)
[2021-07-06] MEDS: INSULIN GLARGINE SOLOSTAR 100 UNITS/ML 3 ML PEN SC SCH ×2 (08:28→21:08)
[2021-07-06] MEDS: FAMOTIDINE 40 MG TABLET PO SCH (08:29)
[2021-07-06 08:48] LABS: BUN Creatinine Ratio 12.8 (10-20); Calcium 8.7 mg/dl (8.5-10.1); Creatinine Clr Calc Pharmacy 70.7 ml/min; Est GFR (African American) 69.3 ml/min; Est GFR (Non-African American) 59.8 ml/min; Potassium 3.8 mmol/L (3.5-5.1)
[2021-07-06] MEDS ORDERED: Nursing to Pharmacy Communication SCH (11:00)
--- NOTE | 2021-07-06 15:39 | Hospitalist Progress Note ---
Date of Service July 06, 2021 Assessment & Plan (1) Abdominal pain: Plan: -Most likely due to constipation and pancreatitis -CT shows evidence of fecal retension, now resolved after having a bowel movement -Abdominal pain is now resolved (2) Acute pancreatitis: Plan: -Slight elevation in serum lipase -On IV fluids -diet advanced as tolerated (3) Diverticulosis: Plan: -There is no evidence of diverticulitis on CT performed in ED -Discontinued ciprofloxacin and Flagyl (4) Diabetes mellitus: Plan: -Last known A1c to be 8 -Discontinued Metformin and Januvia, began 5 units Lantus twice daily with sliding scale (5) Hypercholesteremia: Plan: -Continue atorvastatin (6) HTN (hypertension): Plan: -Continue losartan and hydrochlorothiazide (7) High serum lactate: Plan: -At this time suspect to be due to decreased oral intake -Hold Metformin while in hospital -Recheck lactate in a.m. after receiving fluids Dispo: MedSurg Diet: advance as tolerated DVT prophylaxis: SCDs Code: Full code Plan: discharge home in the next 24 hrs Admission and Anticipated Discharge Date Admission Date: July 05, 2021 Subjective patient seen and examined, abdominal pain has resolved Review of Systems Review of Systems: All systems reviewed are negative, apart from the ones contained in the history. Physical Exam Physical Exam: The patient is awake, alert and oriented 3, well developed and well nourished, normocephalic and atraumatic, lying in bed and in no acute distress. HEENT--PERRL, EOMI, mucous membranes and oropharynx mildly dry Neck--supple. No JVD. No bruits. Thyroid normal, trachea midline, no adenopathy. Heart--normal S1 and S2. No murmurs, rubs or gallops. Lungs--clear bilaterally, no respiratory distress, no accessory muscle use. Abdomen--normal bowel sounds and soft. Mild epigastric and left sided abdominal pain Extremities--no cyanosis or clubbing. No edema. Dermatologic--normal skin turgor, normal color, no abnormal lymph nodes, no rash. Neurologic--cranial nerves II through XII grossly intact. Rheumatologic--normal range of motion. Psychiatric--normal affect. Results & Data Results & Data ([facility]) Vital Signs (Past 12 Hours) Vital Signs Temp Pulse Resp BP Pulse Ox 07/06/21 15:32 98.2 F 69 20 132/68 96 07/06/21 08:12 98.6 F 68 20 138/77 93 PG Care Time/CCT Total # of Minutes Spent Total Time Spent with Patient: Total time spent is greater than 50% in coordination of care (as documented) at patient's floor/unit and/or counseling patient: Coding Level of Care Code 47156 Subseq Obs Care Lvl 2 Diagnoses Abdominal pain R10.84 Abdominal location: generalized Acute pancreatitis K85.90 Diverticulosis K57.90 Diabetes mellitus E11.9 Hypercholesteremia E78.00 HTN (hypertension) I10 High serum lactate R79.89 Time Spent (min) 35 (1) Abdominal pain Abdominal location: generalized Qualified Code(s): R10.84 - Generalized abdominal pain
[2021-07-06] MEDS ORDERED: AMITRIPTYLINE HCL 100 MG TAB PO SCH (21:00)
[2021-07-06] MEDS ORDERED: hydroCHLOROthiazide 25 MG TAB PO SCH (21:00)
[2021-07-06] MEDS ORDERED: LOSARTAN POTASSIUM 50 MG TAB PO SCH (21:00)
[2021-07-06] MEDS ORDERED: ATORVASTATIN 20 MG TAB PO SCH (21:00)
[2021-07-07] MEDS: MoRPHine SULFATE 2 MG/ML CARP IV PRN (02:11)
[2021-07-07 06:59] LABS: Hematocrit (blood only) 38.5 % (42-52); Hemoglobin 13.3 g/dL (14.0-18.0); Mean Corpuscular Hemoglobin 29.7 pg (25-34); Mean Corpuscular Hgb Conc 34.5 g/dL (32-36); Mean Corpuscular Volume 85.9 fL (80-100); Mean Platelet Volume 9.4 fL (7.4-10.4); Platelet Count 239 K/uL (130-400); RDW Coefficient of Variation 12.5 % (11.5-14.5); RDW Standard Deviation 39.6 fL (36.4-46.3); Red Blood Count 4.48 M/uL (4.7-6.1); White Blood Count 8.82 K/uL (4.8-10.8)
[2021-07-07 07:30] LABS: BUN Creatinine Ratio 8.7 (10-20); Calcium 9.6 mg/dl (8.5-10.1); Creatinine Clr Calc Pharmacy 71.9 ml/min; Est GFR (African American) 70.7 ml/min
[2021-07-07] MEDS: FAMOTIDINE 40 MG TABLET PO SCH (08:36)
[2021-07-07] MEDS: INSULIN ASPART PER UNIT SC SCH ×2 (08:48→12:08)
[2021-07-07] MEDS: INSULIN GLARGINE SOLOSTAR 100 UNITS/ML 3 ML PEN SC SCH (08:50)
--- NOTE | 2021-07-07 10:04 | Discharge Summary ---
Date of Service July 07, 2021 Admission HPI Per Admitting Provider Patient is a 65-year-old male with past medical history of DM 2, BPH, diverticulosis, hypertension, and hyperlipidemia being admitted to the hospital for observation for the chief complaint of abdominal pain. Patient reports that for the past week he has been having progressively worsening abdominal pain that is localized to the left lower quadrant He had gone to his PCP to be evaluated where he was clinically diagnosed with diverticulitis and was started on Cipro and Flagyl. He noticed that on Thursday that his pain was getting worse even after starting the antibiotics. Yesterday he reported that he noticed he had not had a bowel movement since Thursday and had taken 2 senna tablets to try make himself go to the bathroom. He reports his abdominal pain does get worse with food and it is localized to the left lower quadrant. Reports that when he came to the ED his abdominal pain was a 7-8 out of 10 and is currently a 4 out of 10 after receiving fentanyl. Patient does report a history of diverticulosis with his most recent episode of diverticulitis being in 1989. He reports he has not changed his diet and has not started any new medications other than the antibiotics he was prescribed by Dr. Tomas. He does report that he does have frequent bouts of constipation and notes that he consistently does not have a bowel movement every day. His regular schedule is upwards to every other day. Denies any recent bloody stools, fever, chills, nausea, vomiting, chest pain, shortness of breath. Patient reports no other complaints at this time. Principal Diagnosis constipation, acute pancreatitis Discharge Exam The patient is awake, alert and oriented 3, well developed and well nourished, normocephalic and atraumatic, lying in bed and in no acute distress. HEENT--PERRL, EOMI, mucous membranes and oropharynx mildly dry Neck--supple. No JVD. No bruits. Thyroid normal, trachea midline, no a denopathy. Heart--normal S1 and S2. No murmurs, rubs or gallops. Lungs--clear bilaterally, no respiratory distress, no accessory muscle use. Abdomen--normal bowel sounds and soft. Mild epigastric and left sided abdominal pain Extremities--no cyanosis or clubbing. No edema. Dermatologic--normal skin turgor, normal color, no abnormal lymph nodes, no rash. Neurologic--cranial nerves II through XII grossly intact. Rheumatologic--normal range of motion. Psychiatric--normal affect. Discharge Data Allergies Allergy/AdvReac Type Severity Reaction Status Date / Time trazodone AdvReac Intermediate BAD Verified 07/05/21 15:39 DREAMS, HEART PALPITATIONS Ordered Studies 07/05/21 16:06 CT Abd and Pelvis [CT abd pelvis oral and IV con] Stat Hospital Course (1) Abdominal pain: -Most likely due to constipation and pancreatitis -CT shows evidence of fecal retension, now resolved after having a bowel movement -Abdominal pain is now resolved (2) Acute pancreatitis: -Serum lipase now wnl -diet advanced as tolerated (3) Diverticulosis: -There is no evidence of diverticulitis on CT performed in ED -Discontinued ciprofloxacin and Flagyl (4) Diabetes mellitus: -Last known A1c to be 8 -Discontinued Metformin and Januvia, began 5 units Lantus twice daily with sliding scale (5) Hypercholesteremia: -Continue atorvastatin (6) HTN (hypertension): -Continue losartan and hydrochlorothiazide (7) High serum lactate: -At this time suspect to be due to decreased oral intake -Hold Metformin while in hospital -Recheck lactate in a.m. after receiving fluids Dispo: MedSurg Diet: advance as tolerated DVT prophylaxis: SCDs Code: Full code discharge home in the next 24 hrs Total Time Total Time Spent Total Time Spent (In Minutes): 35 Discharge Plan Discharge Items Patient Disposition: Home - Self-Care Reason For Visit: CT SCAN FOR ABD PAIN, REFERRED BY DOCTOR Discharge Diagnosis: constipation, acute pancreatitis Condition on Discharge: Good Activity: Resume your previous activity Non-emergency contact: Primary Care Provider Call non-emergency contact if: you have any medication questions and your symptoms worsen Follow-up/Referrals: Isidro Tomas [Primary Care Provider] - Diet: Regular Addtl Attending Provider Instructions: please make appointment to follow up with your regular PCP Pending Studies at Discharge: No Stand-Alone Forms: My [facility] [employer], Smoking Cessation Medications and DC Order Prescriptions: Continued metformin 500 mg Tablet 1,000 mg PO BID RF: 0 atorvastatin [Lipitor] 20 mg Tablet 20 mg PO HS RF: 0 amitriptyline 50 mg Tablet 100 mg PO HS RF: 0 hydrochlorothiazide 25 mg Tablet 25 mg PO QPM RF: 0 losartan 100 mg Tablet 100 mg PO HS RF: 0 qcquwrvccepm-lhfcmfzy-zczvni Tablet 1 tab PO DAILY RF: 0 coenzyme Q10 [CoQ-10] 100 mg Capsule 200 mg PO QAM RF: 0 omega-3 acid ethyl esters [Lovaza] 1 gram Capsule 2 cap PO BID RF: 0 metronidazole 500 mg tablet 500 mg PO TID RF: 0 Januvia 100 mg tablet 100 mg PO DAILY RF: 0 famotidine 40 mg tablet 40 mg PO DAILY RF: 0 Discontinued ciprofloxacin HCl 500 mg tablet 500 mg PO BID RF: 0 Discharge Orders: Discharge Order (Routine); Ordered 07/07/21 Ordered By: Gilbert Kaur Admission Data Admit Date/Time: 07/05/21 21:07 Attending Provider: Gilbert Kaur Admit Provider: Amari Garcia Primary Care Provider: Isidro Tomas Coding Level of Care Code D/C DAY MANAGEMENT >30 MINS Diagnoses Abdominal pain R10.84 Abdominal location: generalized Acute pancreatitis K85.90 Diverticulosis K57.90 Diabetes mellitus E11.9 Hypercholesteremia E78.00 HTN (hypertension) I10 High serum lactate R79.89 Time Spent (min) 35
== END 2021-07-07 14:20 | disposition home or self-care (01) ==
LOC: EDINP 14:55 → ED 14:55 → SUATTDRO 21:07 → 2N 22:59
DX: K57.90 Diverticulosis of intestine, part unspecified, without perforation or abscess without bleeding; R79.89 Other specified abnormal findings of blood chemistry; Z20.822 Contact with and (suspected) exposure to COVID-19; Z79.899 Other long term (current) drug therapy; K85.90 Acute pancreatitis without necrosis or infection, unspecified; E11.9 Type 2 diabetes mellitus without complications; E78.00 Pure hypercholesterolemia, unspecified; Z79.84 Long term (current) use of oral hypoglycemic drugs; I10 Essential (primary) hypertension

== ENCOUNTER 2022-10-29 19:02 | Inpatient (IN) ==
--- NOTE | 2022-10-29 19:33 | XRay Report ---
SINGLE VIEW CHEST CLINICAL HISTORY: Atypical chest pain. FINDINGS: An AP, portable, upright chest radiograph is compared to chest x-ray and chest CT dated 09/18. The heart is enlarged noting atherosclerotic calcification of the thoracic aorta. The pulmona ry vasculature is noncongested. Chronic interstitial thickening is similar to previous. There is left basilar scarring/atelectasis. No airspace consolidation or large pleural effusion is identified. No pneumothorax is seen. The skeletal structures are osteopenic. The bony thorax is grossly intact. IMPRESSION: Cardiomegaly with no acute cardiopulmonary abnormality identified. ACT 112: Negative or not required by law. Electronically signed by: Ankush Reich M.D. 10/29/2022 7:32 PM
--- NOTE | 2022-10-29 19:39 | Emergency Department Note ---
Impression & Plan Chest pain, Hypertension, Coronary artery disease ED Provider Note HISTORY OF PRESENT ILLNESS: Patient is a 67-year-old male presenting with chest pain. Patient reports he is having having intermittent episodes of left-sided chest pain for the last 3 weeks. Pain has turned to be coming constant in nature for the last 48 hours. He had an outpatient CTA done that looked at vessels on his heart, per the patient, and his primary doctor referred him to the emergency department for admission and cardiac catheterization. Patient reports lightheadedness when he bends over. He describes the pain as constant and pressure-like. He denies any history of cardiac stents. He is on a baby aspirin daily. Is currently complaining of left-sided chest pain into the left shoulder. Patient is a non- smoker. Patient denies any alleviating or exacerbating factors to the chest pain ROS: as above PHYSICAL EXAM: Constitutional: Patient appears in no acute distress. HENT: Head: Normocephalic and atraumatic. Eyes: EOMI, PERRL Mouth/Throat: Mucous membranes moist. Neck: Trachea midline. Neck supple. Cardiovascular: RRR, No murmurs, rubs or gallops. Intact distal pulses. Pulmonary/Chest: No respiratory distress. Breath sounds clear and equal bilaterally. No wheezes or rales. Abdominal: BS +. Abdomen soft, no tenderness, rebound or guarding. Musculoskeletal: No edema, tenderness or deformity noted. Skin: Warm and dry. No rash, erythema, pallor or cyanosis Psychiatric: Appropriate mood and affect for situation. Neurological: Alert and keenly responsive. CN II-XII grossly intact, moving all extremities equally and fully. MDM: - Vitals signs showed hypertension. - History obtained via patient. Patient presents with chest pain. Patient still having left-sided chest pain intermittently for the last 3 weeks, but in the last 48 hours has been constant in nature. He had outpatient vessel imaging done today by his primary care provider and was referred to the emergency dep artment for admission and cardiac cath. Patient denies any alleviating or exacerbating factors to the chest pain. - Chronic conditions affecting care: HTN; HLD; DM-2 - Differential diagnoses include, but are not limited to: Acute coronary syndrome; pulmonary embolism; dissection; tension pneumothorax; esophageal rupture; pneumonia - Order placed for continuous cardiac monitoring. At this time, monitor showed rate of 70 bpm with normal sinus rhythm, per my interpretation. - External medical records reviewed. CT cardiac calcium score read was obtained from outpatient setting. It was read as " total coronary calcium score is 1853, more than 94% of healthy patients with same age, gender, and ethnicity." - EKG reviewed by myself showed normal sinus rhythm. Rate 69 bpm. QTc 435. No acute ischemic changes. - Laboratory workup interpreted by myself showed normal WBC; stable hemoglobin; stable electrolytes; normal troponin; normal lipase; normal BNP - CXR showed cardiomegaly, per my interpretation. No notable pneumonia - Heart score 5 (History +1 moderately suspicious; EKG +0; Age +2; Risk factors +2; Initial troponin +0), amounting to a moderate score. - Hospitalist, Dr. Woodard, consulted for admission. - Patient admitted to [facility] for further evaluation and management. ASSESSMENT AND PLAN: Diagnosis: chest pain; coronary artery disease; hypertension Plan: admit Past Med/Surg History Medical History Back pain Diabetes Diverticulosis HTN (hypertension) Hypercholesteremia Pancreatitis Admitted 06/2021 Surgical History H/O right inguinal hernia repair (10/24/21) Open Right Inguinal Hernia Repair with Mesh, excision of cord lipoma, Injection Kenalog Left Groin(Right) - Justin Roldan, 10/24/2021 History of cataract surgery bilat History of colonoscopy History of hernia surgery 07/20/1993 VERENICE Macdonald Hx of oral surgery tooth extraction, complete mouth Family History Mother Family history of diabetes mellitus Social History Smoking Status: Never smoker Second Hand Exposure: No; Hx Alcohol Use: No Hx Substance Use: No Preferred Language: Telugu Communication Ability: Effective Visual Impairment: No Limitations 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 Beliefs That Will Affect Care: None marital status: Current Living Situation: Spouse Current Living Situation Comment: Lives w/ spouse at home current occupational status: retired Feels Safe at Home: Yes during the past year weight has: decreased > 10 lbs Assistive Devices: Denture - Upper, Denture - Lower and Glasses Allergies Allergies Allergy/AdvReac Type Severity Reaction Status Date / Time bupropion [From Wellbutrin] AdvReac Intermediate Palpitation Verified 10/29/22 20:09 s simvastatin [From Zocor] AdvReac Intermediate Cramping Verified 10/29/22 20:09 of the Muscles sitagliptin [From Januvia] AdvReac Intermediate Palpitation Verified 10/29/22 20:09 s trazodone AdvReac Intermediate BAD Verified 10/29/22 20:09 DREAMS, HEART PALPITATIONS Home Meds Home Medications Medication Instructions Recorded Confirmed atorvastatin 20 mg tablet (Lipitor) 20 mg PO HS 03/22/21 10/29/22 coenzyme Q10 100 mg capsule 200 mg PO QA 03/22/21 10/29/22 (CoQ-10) uaveuaubievb-hwcldura-uwqajx tablet 1 tab PO QA 03/22/21 10/29/22 aspirin 81 mg tablet,delayed 81 mg PO QA 10/04/21 10/29/22 release metformin 500 mg tablet,extended 500 mg PO HS 08/05/22 10/29/22 release 24 hr omega-3 acid ethyl esters 1 gram 2 g PO BID 08/05/22 10/29/22 capsule tamsulosin 0.4 mg capsule 0.4 mg PO HS 08/05/22 10/29/22 olmesartan 40 mg tablet 40 mg PO DAILY 10/07/22 10/29/22 Results & Data (ED) Vital Signs Vital Signs - 24 hr 10/29/22 19:04 10/29/22 19:17 Temperature 36.7 C Temperature Source Temporal Artery Scan Pulse Rate 75 69 Respiratory Rate 20 Respiratory Effort / Characteristics Non-Labored Spontaneous Respiratory Depth Normal Blood Pressure 194/83 H Blood Pressure Mean 120 Pulse Oximetry 97 Oxygen Delivery Method Room Air Sepsis Recent Fever Within 48 Hours No Sepsis New/Unexplained Change in Mental Status No Sepsis Action Taken by Nursing No Action Required Laboratory Data 10/29/22 19:17 10/29/22 19:17 Lab Results 10/29/22 10/29/22 10/29/22 Range/Units 19:17 19:17 19:17 WBC 6.65 (4.8-10.8) K/ul RBC 4.60 L (4.70-6.10) M/uL Hgb 13.8 L (14.0-18.0) g/dl Hct 39.5 L (42.0-52.0) % MCV 85.9 (80.0-100.0) fL MCH 30.0 (25.0-34.0) pg MCHC 34.9 (32.0-36.0) g/dL RDW Std Deviation 40.4 (36.4-46.3) fL RDW Coeff of John 13.0 (11.5-14.5) % Plt Count 247 (130-400) K/uL MPV 9.6 (9.4-12.4) fL Immature Gran % (Auto) 0.2 % Neut % (Auto) 55.0 % Lymph % (Auto) 32.8 % [place] % (Auto) 8.9 % Eos % (Auto) 2.3 % Baso % (Auto) 0.8 % Neut # (Auto) 3.67 (1.40-6.50) K/uL Lymph # (Auto) 2.18 (1.2-3.4) K/uL [place] # (Auto) 0.59 (0.11-0.59) K/uL Eos # (Auto) 0.15 (0-0.50) K/uL Baso # (Auto) 0.05 (0-0.2) K/uL Immature Gran # (Auto) 0.01 (0.01-0.20) K/uL PT 12.3 H (9.0-12.0) Seconds INR 1.2 H (0.9-1.1) Sodium 136 (136-145) mmol/L Potassium 3.9 (3.5-5.1) mmol/L Chloride 103 (98-107) mmol/L Carbon Dioxide 29 (21-32) mmol/L Anion Gap 4 (3-11) BUN 17 (6-23) mg/dl Creatinine 1.31 (0.6-1.4) mg/dl Est Cr Clr Drug Dosing 58.4 ml/min Est GFR ( Amer) 63.9 ml/min Est GFR (Non-Af Amer) 55.2 ml/min BUN/Creatinine Ratio 13.0 (10-20) Glucose 155 H (70-99(Fasting)) mg/dl Calcium 9.4 (8.6-10.3) mg/dl Total Bilirubin 0.6 (0.2-1.0) mg/dl AST 17 (13-39) U/L ALT 14 (7-52) U/L Alkaline Phosphatase 49 (34-104) U/L Troponin I High Sens 3.3 (0-20) pg/ml B-Natriuretic Peptide (0-100) pg/ml Total Protein 7.0 (6.0-8.3) gm/dl Albumin 4.3 (3.4-5.0) gm/dl Globulin 2.7 (2.5-4.0) gm/dl Albumin/Globulin Ratio 1.6 (0.9-2) Lipase 51 (11-82) U/L SARS-CoV-2, RNA, NAAT (NEGATIVE) 10/29/22 10/29/22 10/29/22 Range/Units 19:17 19:17 19:23 WBC (4.8-10.8) K/ul RBC (4.70-6.10) M/uL Hgb (14.0-18.0) g/dl Hct (42.0-52.0) % MCV (80.0-100.0) fL MCH (25.0-34.0) pg MCHC (32.0-36.0) g/dL RDW Std Deviation (36.4-46.3) fL RDW Coeff of John (11.5-14.5) % Plt Count (130-400) K/uL MPV (9.4-12.4) fL Immature Gran % (Auto) % Neut % (Auto) % Lymph % (Auto) % [place] % (Auto) % Eos % (Auto) % Baso % (Auto) % Neut # (Auto) (1.40-6.50) K/uL Lymph # (Auto) (1.2-3.4) K/uL [place] # (Auto) (0.11-0.59) K/uL Eos # (Auto) (0-0.50) K/uL Baso # (Auto) (0-0.2) K/uL Immature Gran # (Auto) (0.01-0.20) K/uL PT (9.0-12.0) Seconds INR (0.9-1.1) Sodium (136-145) mmol/L Potassium (3.5-5.1) mmol/L Chloride (98-107) mmol/L Carbon Dioxide (21-32) mmol/L Anion Gap (3-11) BUN (6-23) mg/dl Creatinine (0.6-1.4) mg/dl Est Cr Clr Drug Dosing ml/min Est GFR ( Amer) ml/min Est GFR (Non-Af Amer) ml/min BUN/Creatinine Ratio (10-20) Glucose (70-99(Fasting)) mg/dl Calcium (8.6-10.3) mg/dl Total Bilirubin (0.2-1.0) mg/dl AST (13-39) U/L ALT (7-52) U/L Alkaline Phosphatase (34-104) U/L Troponin I High Sens 3.6 (0-20) pg/ml B-Natriuretic Peptide 6 (0-100) pg/ml Total Protein (6.0-8.3) gm/dl Albumin (3.4-5.0) gm/dl Globulin (2.5-4.0) gm/dl Albumin/Globulin Ratio (0.9-2) Lipase (11-82) U/L SARS-CoV-2, RNA, NAAT NEGATIVE (NEGATIVE) Imaging Data Radiologist's Impression: Chest X-Ray 10/29/22 19:11 SINGLE VIEW CHEST CLINICAL HISTORY: Atypical chest pain. FINDINGS: An AP, portable, upright chest radiograph is compared to chest x-ray and chest CT dated 10/07/2022. The heart is enlarged noting atherosclerotic calcification of the thoracic aorta. The pulmonary vasculature is noncongested. Chronic interstitial thickening is similar to previous. There is left basilar scarring/atelectasis. No airspace consolidation or large pleural effusion is identified. No pneumothorax is seen. The skeletal structures are osteopenic. The bony thorax is grossly intact. IMPRESSION: Cardiomegaly with no acute cardiopulmonary abnormality identified. ACT 112: Negative or not required by law. Electronically signed by: Ankush Reich M.D. 10/29/2022 7:32 PM Discharge Plan Visit Data Chief Complaint: Chest Pain Stated Complaint: REF BY DOC,CHEST PAIN,HBP ED Provider: Reema Negrete Discharge Problem: Chest pain, Hypertension, Coronary artery disease Forms Stand Alone Forms: My [facility] Prescriptions Prescriptions: No Action aspirin 81 mg tablet,delayed release (DR/EC) 81 mg PO QAM atorvastatin [Lipitor] 20 mg Tablet 20 mg PO HS oxadgiauuplr-fhctfman-oajadv Tablet 1 tab PO QAM coenzyme Q10 [CoQ-10] 100 mg Capsule 200 mg PO QAM olmesartan 40 mg tablet 40 mg PO DAILY tamsulosin 0.4 mg capsule 0.4 mg PO HS metformin 500 mg tablet extended release 24 hr 500 mg PO HS omega-3 acid ethyl esters 1 gram capsule 2 g PO BID Referrals Referrals: Isidro Tomas [Primary Care Provider] -
[2022-10-29 20:09] LABS: Basophils # (auto) 0.05 K/uL (0-0.2); Basophils % (auto) 0.8 %; Eosinophils # (auto) 0.15 K/uL (0-0.50); Eosinophils % (auto) 2.3 %; Hematocrit (blood only) 39.5 % (42.0-52.0); Hemoglobin 13.8 g/dl (14.0-18.0); Immature Granulocytes # (auto) 0.01 K/uL (0.01-0.20); Immature Granulocytes % (auto) 0.2 %; Lymphocytes # (auto) 2.18 K/uL (1.2-3.4); Lymphocytes % (auto) 32.8 %; Mean Corpuscular Hgb Conc 34.9 g/dL (32.0-36.0); Mean Corpuscular Volume 85.9 fL (80.0-100.0); Mean Platelet Volume 9.6 fL (9.4-12.4); Monocytes # (auto) 0.59 K/uL (0.11-0.59); Monocytes % (auto) 8.9 %; Neutrophils # (auto) 3.67 K/uL (1.40-6.50); Platelet Count 247 K/uL (130-400); RDW Standard Deviation 40.4 fL (36.4-46.3); White Blood Count 6.65 K/ul (4.8-10.8)
[2022-10-29 20:20] LABS: Albumin Globulin Ratio 1.6 (0.9-2); Albumin Level 4.3 gm/dl (3.4-5.0); Bilirubin,Total 0.6 mg/dl (0.2-1.0); Calcium 9.4 mg/dl (8.6-10.3); Creatinine Clr Calc Pharmacy 58.4 ml/min; Est GFR (African American) 63.9 ml/min; Est GFR (Non-African American) 55.2 ml/min; Globulin 2.7 gm/dl (2.5-4.0); Potassium 3.9 mmol/L (3.5-5.1)
[2022-10-29 20:26] LABS: Troponin I High Sensitivity 3.3 pg/ml (0-20)
[2022-10-29 20:35] LABS: INR 1.2 (0.9-1.1); Prothrombin Time 12.3 Seconds (9.0-12.0)
[2022-10-29] MEDS ORDERED: PANTOprazole 40 MG in SYRINGE 0 ML IV ONE (22:30)
[2022-10-30] MEDS ORDERED: ACETAMINOPHEN 325 MG TAB PO PRN (01:15)
[2022-10-30] MEDS ORDERED: MoRPHine SULFATE 2 MG/ML CARP IV PRN (01:15)
[2022-10-30] MEDS ORDERED: NSS + 20MEQ KCL 20 MEQ/1,000 ML BAG IV SCH (01:15)
[2022-10-30] MEDS ORDERED: ONDANSETRON INJ 2 MG/ML 2 ML VIAL IV PRN (01:15)
[2022-10-30] MEDS: NITROGLYCERIN 2% OINTMENT 30GM TUBE EXT SCH ×3 (02:08→13:13)
[2022-10-30 02:21] LABS: Basophils # (auto) 0.07 K/uL (0-0.2); Eosinophils # (auto) 0.18 K/uL (0-0.50); Eosinophils % (auto) 2.5 %; Hematocrit (blood only) 38.1 % (42.0-52.0); Hemoglobin 13.1 g/dl (14.0-18.0); Immature Granulocytes # (auto) 0.02 K/uL (0.01-0.20); Immature Granulocytes % (auto) 0.3 %; Lymphocytes # (auto) 2.41 K/uL (1.2-3.4); Lymphocytes % (auto) 32.8 %; Mean Corpuscular Hemoglobin 29.6 pg (25.0-34.0); Mean Corpuscular Hgb Conc 34.4 g/dL (32.0-36.0); Mean Corpuscular Volume 86.2 fL (80.0-100.0); Mean Platelet Volume 9.5 fL (9.4-12.4); Monocytes # (auto) 0.64 K/uL (0.11-0.59); Monocytes % (auto) 8.7 %; Neutrophils # (auto) 4.02 K/uL (1.40-6.50); Neutrophils % (auto) 54.7 %; Platelet Count 218 K/uL (130-400); RDW Standard Deviation 40.7 fL (36.4-46.3); Red Blood Count 4.42 M/uL (4.70-6.10); White Blood Count 7.34 K/ul (4.8-10.8)
[2022-10-30 02:35] LABS: Albumin Level 4.2 gm/dl (3.4-5.0); BUN Creatinine Ratio 13.9 (10-20); Calcium 9.4 mg/dl (8.6-10.3); Creatinine Clr Calc Pharmacy 66.5 ml/min; Est GFR (African American) 74.8 ml/min; Est GFR (Non-African American) 64.6 ml/min; Phosphorus 3.5 mg/dl (2.5-4.9); Potassium 4.1 mmol/L (3.5-5.1)
[2022-10-30 02:43] LABS: Troponin I High Sensitivity 4.4 pg/ml (0-20)
--- NOTE | 2022-10-30 04:02 | History & Physical Report ---
Date of Service October 30, 2022 Assessment & Plan (1) Chest pain: (2) Hypertension: (3) Coronary artery disease: (4) H/O right inguinal hernia repair: (5) Abdominal pain: (6) Acute pancreatitis: (7) Diabetes mellitus: (8) Diverticulitis: (9) Hypercholesteremia: (10) High coronary artery calcium score: Plan Chest pain with high coronary artery calcium score/hypertension- The patient will be admitted to telemetry for serial cardiac enzymes, serial EKG's, cardiac rhythm monitoring and a 2-D echocardiogram with Dopplers. Additional risk factors include hypercholesterolemia and obesity Initial troponin normal Discussed with patient differential includes but not limited to: Angina, GERD, esophagitis, gastritis, duodenitis Continue aspirin 81 mg daily and fish oil NSS + KCl 20 mEq at 80 mils per hour x1 L Nitropaste 1 inch anterior chest wall every 6 hours Morphine sulfate 2 mg IV every 30 minutes as needed chest pain Will consult cardiology in light of the high coronary artery calcium score, to see once the echo is completed, if the patient needs more aggressive assessment Epigastric pain/variable chest pain/recurrent episodes of diverticulitis- Trial of pantoprazole 40 mg IV x1 in the ED Patient reports that of his 3 episodes of diverticulitis, the third did not respond to antibiotics and has had intermittent symptoms since that time Would discontinue olmesartan, as its been associated with abdominal symptoms similar to his Would also hold metformin May consider consult to gastroenterology if cardiac work-up is negative, to see if any direct observation is needed Hyperlipidemia- Continue atorvastatin 20 mg at bedtime Check a fasting lipid panel BPH- Continue tamsulosin at bedtime Admission and Anticipated Discharge Date Admission Date: October 30, 2022 History of Present Illness Chief Complaint: The patient presents to the emergency department with complaint of 3 weeks of chest pain in variable locations on the chest from left lower chest to midsternal to upper chest, having had a CT cardiac calcium score performed on 10/28/2022, which was abnormal. Primary Care Provider: Isidro Tomas The patient is a 67-year-old male with a past medical history including hypertension, abdominal pain, diverticulitis, pancreatitis, diabetes mellitus, diverticulosis, hypercholesterolemia, incarcerated right inguinal hernia and hypertension. Due to patient having persistent chest pain of 3 weeks duration, he was sent for a CT cardiac calcium score, which was performed on with the following results: Left main 0, LAD 1416, LCx 48, RCA 389, total 1853. The patient has had 3 intermittent episodes of diverticulitis over the past year, and has had issues with reflux as well. Allergies Allergy/AdvReac Type Severity Reaction Status Date / Time bupropion [From Wellbutrin] AdvReac Intermediate Palpitation Verified 10/29/22 20:09 s simvastatin [From Zocor] AdvReac Intermediate Cramping Verified 10/29/22 20:09 of the Muscles sitagliptin [From Januvia] AdvReac Intermediate Palpitation Verified 10/29/22 20:09 s trazodone AdvReac Intermediate BAD Verified 10/29/22 20:09 DREAMS, HEART PALPITATIONS Home Medications Medication Instructions Recorded Confirmed Type atorvastatin 20 mg tablet (Lipitor) 20 mg PO HS 03/22/21 10/29/22 History coenzyme Q10 100 mg capsule 200 mg PO QAM 03/22/21 10/29/22 History (CoQ-10) sizznskmdylw-klzwnwxj-qwhciy tablet 1 tab PO QAM 03/22/21 10/29/22 History aspirin 81 mg tablet,delayed 81 mg PO QAM 10/04/21 10/29/22 History release metformin 500 mg tablet,extended 500 mg PO HS 08/05/22 10/29/22 History release 24 hr omega-3 acid ethyl esters 1 gram 2 g PO BID 08/05/22 10/29/22 History capsule tamsulosin 0.4 mg capsule 0.4 mg PO HS 08/05/22 10/29/22 History olmesartan 40 mg tablet 40 mg PO DAILY 10/07/22 10/29/22 History Past Med/Surg History Medical History (Updated 10/30/22 @ 03:56 by Mal Woodard MD) Back pain Diabetes Diverticulitis Diverticulosis High coronary artery calcium score HTN (hypertension) Hypercholesteremia Pancreatitis Admitted 06/2021 Surgical History H/O right inguinal hernia repair (10/24/21) Open Right Inguinal Hernia Repair with Mesh, excision of cord lipoma, Injection Kenalog Left Groin(Right) - Justin Roldan, 10/24/2021 History of cataract surgery bilat History of colonoscopy History of hernia surgery 07/20/1993 VERENICE Macdonald Hx of oral surgery tooth extraction, complete mouth Family History Mother Family history of diabetes mellitus Social History Smoking Status: Never smoker Second Hand Exposure: No; Do You Dip or Chew Tobacco: No; Hx Alcohol Use: No Hx Substance Use: No Preferred Language: Lao Communication Ability: Effective Visual Impairment: No Limitations Environmental Health Specialist Required: No Beliefs That Will Affect Care: None marital status: Current Living Situation: Spouse Current Living Situation Comment: home with spouse current occupational status: retired Other Information That Helps Us Care for You: No Feels Safe at Home: Yes Safety Concerns: Feels Safe At This Time during the past year weight has: decreased > 10 lbs Assistive Devices: None Review of Systems Review of Systems: The patient denies palpitations, cough, lower extremity swelling, sore throat, fevers, chills, sweats, nausea, vomiting, blood in urine or stool, dysuria, urinary frequency or urgency, lightheadedness, dizziness, headache, memory loss, loss of consciousness, rash, abnormal bruising or bleeding, imbalance, focal or generalized weakness, numbness or tingling in arms or legs, generalized arthralgias or myalgias, back or neck pain, or night sweats. The review of systems is otherwise negative other than for that already noted above, and at least 10 systems have been reviewed. Physical Exam Physical Exam: The patient is awake, alert and oriented 3, well developed and well nourished, normocephalic and atraumatic, lying in bed and in no acute distress. HEENT--PERRL, EOMI, mucous membranes and oropharynx dry. Neck--supple. No JVD. No bruits. Thyroid normal, trachea midline, no adenopathy. Heart--normal S1 and S2. No murmurs, rubs or gallops. Lungs--clear bilaterally, no respiratory distress, no accessory muscle use. Abdomen--normal bowel sounds and soft. Nontender. Nondistended, no hernias or masses, no organomegaly. Extremities--no cyanosis or clubbing. No edema. There are good distal pulses b/l. Dermatologic--normal skin turgor, normal color, no abnormal lymph nodes, no rash. Neurologic--cranial nerves II through XII grossly intact. Rheumatologic--normal range of motion. Psychiatric--normal affect. Results & Data Results & Data Vital Signs (Past 12 Hours) Vital Signs Temp Pulse Pulse Resp BP BP BP 10/30/22 03:06 36.5 C 56 L 17 148/76 H 10/30/22 01:29 36.4 C L 65 16 176/83 H 10/30/22 01:15 36.4 C L 65 16 176/83 H 10/30/22 01:15 10/30/22 00:30 58 L 16 135/81 10/29/22 23:30 57 L 18 129/71 10/29/22 23:30 129/71 10/29/22 23:00 56 L 14 140/74 10/29/22 23:15 66 10/29/22 22:30 56 L 20 141/74 H 10/29/22 21:31 59 L 14 135/71 10/29/22 22:17 59 L 14 10/29/22 21:00 60 20 118/67 10/29/22 20:30 62 20 146/69 H 10/29/22 19:30 67 18 166/77 H 10/29/22 19:17 69 10/29/22 19:04 36.7 C 75 20 194/83 H Pulse Ox Pulse Ox O2 Del Method O2 Del Method 10/30/22 03:06 98 Room Air 10/30/22 01:29 98 Room Air 10/30/22 01:15 98 Room Air 10/30/22 01:15 98 Room Air 10/30/22 00:30 97 10/29/22 23:30 94 10/29/22 23:30 10/29/22 23:00 96 10/29/22 23:15 10/29/22 22:30 94 10/29/22 21:31 98 10/29/22 22:17 99 Room Air 10/29/22 21:00 98 10/29/22 20:30 97 10/29/22 19:30 97 10/29/22 19:17 10/29/22 19:04 97 Room Air Laboratory Results Laboratory Results WBC 7.34 K/ul (4.8-10.8) 10/30/22 02:01 RBC 4.42 M/uL (4.70-6.10) L 10/30/22 02:01 Hgb 13.1 g/dl (14.0-18.0) L 10/30/22 02:01 Hct 38.1 % (42.0-52.0) L 10/30/22 02:01 MCV 86.2 fL (80.0-100.0) 10/30/22 02:01 MCH 29.6 pg (25.0-34.0) 10/30/22 02:01 MCHC 34.4 g/dL (32.0-36.0) 10/30/22 02:01 RDW Std Deviation 40.7 fL (36.4-46.3) 10/30/22 02:01 RDW Coeff of John 13.0 % (11.5-14.5) 10/30/22 02:01 Plt Count 218 K/uL (130-400) 10/30/22 02:01 MPV 9.5 fL (9.4-12.4) 10/30/22 02:01 Immature Gran % (Auto) 0.3 % 10/30/22 02:01 Neut % (Auto) 54.7 % 10/30/22 02:01 Lymph % (Auto) 32.8 % 10/30/22 02:01 [place] % (Auto) 8.7 % 10/30/22 02:01 Eos % (Auto) 2.5 % 10/30/22 02:01 Baso % (Auto) 1.0 % 10/30/22 02:01 Neut # (Auto) 4.02 K/uL (1.40-6.50) 10/30/22 02:01 Lymph # (Auto) 2.41 K/uL (1.2-3.4) 10/30/22 02:01 [place] # (Auto) 0.64 K/uL (0.11-0.59) H 10/30/22 02:01 Eos # (Auto) 0.18 K/uL (0-0.50) 10/30/22 02:01 Baso # (Auto) 0.07 K/uL (0-0.2) 10/30/22 02:01 Immature Gran # (Auto) 0.02 K/uL (0.01-0.20) 10/30/22 02:01 PT 12.3 Seconds (9.0-12.0) H 10/29/22 19:17 INR 1.2 (0.9-1.1) H 10/29/22 19:17 Sodium 137 mmol/L (136-145) 10/30/22 02:01 Potassium 4.1 mmol/L (3.5-5.1) 10/30/22 02:01 Chloride 103 mmol/L (98-107) 10/30/22 02:01 Carbon Dioxide 29 mmol/L (21-32) 10/30/22 02:01 Anion Gap 5 (3-11) 10/30/22 02:01 BUN 16 mg/dl (6-23) 10/30/22 02:01 Creatinine 1.15 mg/dl (0.6-1.4) 10/30/22 02:01 Est Cr Clr Drug Dosing 66.5 ml/min 10/30/22 02:01 Est GFR ( Amer) 74.8 ml/min 10/30/22 02:01 Est GFR (Non-Af Amer) 64.6 ml/min 10/30/22 02:01 BUN/Creatinine Ratio 13.9 (10-20) 10/30/22 02:01 Glucose 113 mg/dl (70-99(Fasting)) H 10/30/22 02:01 POC Glucose 111 mg/dl (70-99) H 10/30/22 01:18 Calcium 9.4 mg/dl (8.6-10.3) 10/30/22 02:01 Phosphorus 3.5 mg/dl (2.5-4.9) 10/30/22 02:01 Total Bilirubin 0.6 mg/dl (0.2-1.0) 10/29/22 19:17 AST 17 U/L (13-39) 10/29/22 19:17 ALT 14 U/L (7-52) 10/29/22 19:17 Alkaline Phosphatase 49 U/L (34-104) 10/29/22 19:17 Troponin I High Sens 4.4 pg/ml (0-20) 10/30/22 02:01 B-Natriuretic Peptide 6 pg/ml (0-100) 10/29/22 19:17 Total Protein 7.0 gm/dl (6.0-8.3) 10/29/22 19:17 Albumin 4.2 gm/dl (3.4-5.0) 10/30/22 02:01 Globulin 2.7 gm/dl (2.5-4.0) 10/29/22 19:17 Albumin/Globulin Ratio 1.6 (0.9-2) 10/29/22 19:17 Lipase 51 U/L (11-82) 10/29/22 19:17 SARS-CoV-2, RNA, NAAT NEGATIVE (NEGATIVE) 10/29/22 19:23 Impressions Chest X-Ray 10/29/22 19:11 SINGLE VIEW CHEST CLINICAL HISTORY: Atypical chest pain. FINDINGS: An AP, portable, upright chest radiograph is compared to chest x-ray and chest CT dated 10/07/2022. The heart is enlarged noting atherosclerotic calcification of the thoracic aorta. The pulmonary vasculature is noncongested. Chronic interstitial thickening is similar to previous. There is left basilar scarring/atelectasis. No airspace consolidation or large pleural effusion is identified. No pneumothorax is seen. The skeletal structures are osteopenic. The bony thorax is grossly intact. IMPRESSION: Cardiomegaly with no acute cardiopulmonary abnormality identified. ACT 112: Negative or not required by law. Electronically signed by: Ankush Reich M.D. 10/29/2022 7:32 PM Code Status & VTE Plan Code Status Full code VTE Prophylaxis Plan VTE Prophylaxis will be ordered: Yes PG Care Time/CCT Total # of Minutes Spent Total Time Spent with Patient: Total time spent is greater than 50% in coordination of care (as documented) at patient's floor/unit and/or counseling patient: Coding Level of Care Code 85634 INT INP/OBS CARE 3/75MIN Diagnoses Chest pain R07.9 Hypertension I10 Coronary artery disease I25.10 H/O right inguinal hernia repair Z98.890; Z87.19 Abdominal pain R10.84 Abdominal location: generalized Acute pancreatitis K85.90 Diabetes mellitus E11.9 Diverticulitis K57.92 Hypercholesteremia E78.00 High coronary artery calcium score R93.1 (5) Abdominal pain Abdominal location: generalized Qualified Code(s): R10.84 - Generalized abdominal pain
[2022-10-30] MEDS ORDERED: OMEGA-3 (PURIFIED FISH OIL) 1 GM CAP PO SCH (09:00)
[2022-10-30] MEDS ORDERED: NON-FORMULARY MEDICATION (Coenzyme Q10 [Coq-10] 100 mg Capsule) PO SCH (09:00)
[2022-10-30] MEDS ORDERED: CEROVITE ADV FORMULA TAB PO SCH (09:00)
[2022-10-30] MEDS ORDERED: ASPIRIN 81 MG ECTAB PO SCH (09:00)
[2022-10-30] MEDS ORDERED: HEPARIN SOD 5,000 UNIT/0.5 ML VIAL SQ SCH (09:00)
[2022-10-30 09:33] LABS: Troponin I High Sensitivity 3.3 pg/ml (0-20)
--- NOTE | 2022-10-30 16:55 | Cardiology Consultation ---
Date of Consultation October 30, 2022 Assessment & Plan (1) High coronary artery calcium score: (2) Chest pain: (3) Hypertension: (4) Hypercholesteremia: (5) Abdominal pain: Plan ASSESSMENT/PLAN: 1. High coronary artery calcium score: We discussed the diagnosis. No symptoms concerning for angina. Longstanding more so abdominal discomfort along his left lower rib margin which is tender upon palpation suggesting musculoskeletal origin. Despite constant pain for nearly 1 month, high-sensitivity troponins are normal. Given high coronary artery calcium score and multiple risk factors however, stress echo recommended. Risk factor modification recommended and discussed. 2. Chest pain: His described chest pain is more so abdominal, along the left lower rib margin suggesting musculoskeletal pain. This is not consistent with ischemic heart disease. As per primary hospitalist/PCP. 3. Abdominal pain: Has epigastric tenderness and pain with eating. This suggest GI etiology. Will defer work-up to hospitalist service/PCP. 4. Hypertension: Blood pressure is reasonably controlled. Had episodic hypotension while here. Monitor blood pressure as an outpatient and treat as appropriate. 5. Dyslipidemia: Most recent lipid profile was not available for review but would treat for underlying CAD given elevated coronary artery calcium score. Recommend atorvastatin 40 mg daily if tolerated. Did not tolerate statin therapy in the past without coenzyme Q10, but tolerating 20 mg of atorvastatin with the supplement. Recommended Mediterranean diet and regular cardiovascular exercise with a goal of 30 to 40 minutes/day, 5 days/week. 6. Disposition: Can be discharged home from a cardiac perspective following stress echo if unremarkable. He would like to follow-up in the outpatient setting. Recommend 6-month follow-up appointment with cardiology. Cardiology office was notified to help set this appointment up and to contact patient when scheduled. Patient care communicated and discussed with Dr. Salter of the primary hospitalist service. Addendum: Stress echo images were unremarkable. Stress ECG was negative as well. Findings were discussed with patient. Findings relayed to Dr. Salter. He can be discharged home from a cardiac standpoint, pending any other work-up for his symptoms as deemed necessary by primary hospitalist service. Thank you for allowing me to participate in the care of your patient. Please call for any other questions or concerns. Sincerely, Ace Carcamo M.D. History of Present Illness Reason for Consultation: Chest pain. High calcium score. Requesting Physician: Dr. Woodard Attending Physician: Tristen Salter DO History of Present Illness Mr. Alejandra is a very pleasant 67-year-old gentleman with a history significant for type 2 diabetes, hypertension, dyslipidemia, high coronary artery calcium score, and diverticulitis. He was admitted on 10/30/2022 for what was described as chest discomfort after being told by his PCP about elevated coronary artery calcium score from a CT scan performed earlier this week. The CT scan reportedly demonstrated a left main score of 0, LAD 1416, circumflex 48, RCA 389 and a total score of 1853. He reports a discomfort laterally at the lower rib margin. This has been constant since mid September 2022 and began in July 2022, first occurring intermittently until it became constant nearly 1 month ago. There is no specific trigger and when he is busier, he notices it less. There is no alleviating factor. The discomfort is nonpleuritic and nonpositional. He also reports epigastric discomfort that occurs with any type of food. He denies shortness of breath, syncope, near syncope, palpitations, edema, or bleeding. He does have lightheadedness if he bends over and then stands up quickly. He has had significant issues with diverticulitis over the past year, requiring antibiotics on several occasions. He is tolerating atorvastatin 20 mg daily but had myalgias before using coenzyme Q10. He is tolerating it well now. He walks his dog twice daily approximately 0.5 miles, and tolerates it well. During this hospital stay, he underwent serial high-sensitivity troponin levels which initially were 3.3 with a high of 4.4, all within normal limits. Review of systems: As above. Review of systems otherwise negative/unremarkable. Family history: No known premature CAD. Social history: Quit smoking approximately 30 years ago. Occasional alcohol. No drug abuse. Lives at home with his . Has 2 stepchildren. 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 He was unaccompanied in his hospital room. Allergies Allergy/AdvReac Type Severity Reaction Status Date / Time bupropion [From Wellbutrin] AdvReac Intermediate Palpitation Verified 10/29/22 20:09 s simvastatin [From Zocor] AdvReac Intermediate Cramping Verified 10/29/22 20:09 of the Muscles sitagliptin [From Januvia] AdvReac Intermediate Palpitation Verified 10/29/22 20:09 s trazodone AdvReac Intermediate BAD Verified 10/29/22 20:09 DREAMS, HEART PALPITATIONS Home Medications Medication Instructions Recorded Confirmed Type atorvastatin 20 mg tablet (Lipitor) 20 mg PO HS 03/22/21 10/29/22 History coenzyme Q10 100 mg capsule 200 mg PO QAM 03/22/21 10/29/22 History (CoQ-10) pyqeloyqktnx-llanfhcu-bumcbt tablet 1 tab PO QAM 03/22/21 10/29/22 History aspirin 81 mg tablet,delayed 81 mg PO QAM 10/04/21 10/29/22 History release metformin 500 mg tablet,extended 500 mg PO HS 08/05/22 10/29/22 History release 24 hr omega-3 acid ethyl esters 1 gram 2 g PO BID 08/05/22 10/29/22 History capsule tamsulosin 0.4 mg capsule 0.4 mg PO HS 08/05/22 10/29/22 History olmesartan 40 mg tablet 40 mg PO DAILY 10/07/22 10/29/22 History Patient History Medical History Back pain Diabetes Diverticulitis Diverticulosis High coronary artery calcium score HTN (hypertension) Hypercholesteremia Pancreatitis Admitted 06/2021 Surgical History H/O right inguinal hernia repair (10/24/21) Open Right Inguinal Hernia Repair with Mesh, excision of cord lipoma, Injection Kenalog Left Groin(Right) - Justin Roldan, 10/24/2021 History of cataract surgery bilat History of colonoscopy History of hernia surgery 07/20/1993 VERENICE Macdonald Hx of oral surgery tooth extraction, complete mouth Family History Mother Family history of diabetes mellitus Social History Smoking Status: Never smoker Second Hand Exposure: No; Do You Dip or Chew Tobacco: No; Hx Alcohol Use: No Hx Substance Use: No Preferred Language: Swedish Communication Ability: Effective Visual Impairment: No Limitations 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 Alert and oriented. HEENT: Anicteric sclera. Neck: No JVD. No bruits. Normal carotid upstrokes bilaterally. Cardiac: PMI was nondisplaced. No ventricular heave. Regular. Normal S1-S2. No murmurs, rubs, or gallops. Pulmonary: Clear to auscultation bilaterally without wheezes, rales, or rhonchi. Abdomen: Soft, nondistended, with normoactive bowel sounds. No bruits noted. Epigastric tenderness. Left lateral tenderness along the left lower rib margin, reproducing the pain described above in HPI. Extremities: 2+ radial pulses bilaterally. 2+ posterior tibialis pulses bilaterally. No edema or cyanosis. Psychiatric: Affect appears appropriate. Results & Data Vital Signs (Past 12 Hours) Vital Signs Temp Pulse Resp BP Pulse Ox O2 Del Method 10/30/22 16:30 36.6 C 72 18 132/68 95 Room Air 10/30/22 11:41 36.7 C 65 18 120/68 95 Room Air 10/30/22 07:49 36.7 C 63 20 135/70 96 Room Air Laboratory Results Laboratory Results - last 24 hr 10/29/22 10/29/22 10/29/22 19:17 19:17 19:17 WBC 6.65 RBC 4.60 L Hgb 13.8 L Hct 39.5 L MCV 85.9 MCH 30.0 MCHC 34.9 RDW Std Deviation 40.4 RDW Coeff of John 13.0 Plt Count 247 MPV 9.6 Immature Gran % (Auto) 0.2 Neut % (Auto) 55.0 Lymph % (Auto) 32.8 [place] % (Auto) 8.9 Eos % (Auto) 2.3 Baso % (Auto) 0.8 Neut # (Auto) 3.67 Lymph # (Auto) 2.18 [place] # (Auto) 0.59 Eos # (Auto) 0.15 Baso # (Auto) 0.05 Immature Gran # (Auto) 0.01 PT 12.3 H INR 1.2 H Sodium 136 Potassium 3.9 Chloride 103 Carbon Dioxide 29 Anion Gap 4 BUN 17 Creatinine 1.31 Est Cr Clr Drug Dosing 58.4 Est GFR ( Amer) 63.9 Est GFR (Non-Af Amer) 55.2 BUN/Creatinine Ratio 13.0 Glucose 155 H POC Glucose Calcium 9.4 Phosphorus Total Bilirubin 0.6 AST 17 ALT 14 Alkaline Phosphatase 49 Troponin I High Sens 3.3 B-Natriuretic Peptide Total Protein 7.0 Albumin 4.3 Globulin 2.7 Albumin/Globulin Ratio 1.6 Amylase Lipase 51 SARS-CoV-2, RNA, NAAT 10/29/22 10/29/22 10/29/22 19:17 19:17 19:23 WBC RBC Hgb Hct MCV MCH MCHC RDW Std Deviation RDW Coeff of John Plt Count MPV Immature Gran % (Auto) Neut % (Auto) Lymph % (Auto) [place] % (Auto) Eos % (Auto) Baso % (Auto) Neut # (Auto) Lymph # (Auto) [place] # (Auto) Eos # (Auto) Baso # (Auto) Immature Gran # (Auto) PT INR Sodium Potassium Chloride Carbon Dioxide Anion Gap BUN Creatinine Est Cr Clr Drug Dosing Est GFR ( Amer) Est GFR (Non-Af Amer) BUN/Creatinine Ratio Glucose POC Glucose Calcium Phosphorus Total Bilirubin AST ALT Alkaline Phosphatase Troponin I High Sens 3.6 B-Natriuretic Peptide 6 Total Protein Albumin Globulin Albumin/Globulin Ratio Amylase Lipase SARS-CoV-2, RNA, NAAT NEGATIVE 10/30/22 10/30/22 10/30/22 01:18 02:01 02:01 WBC 7.34 RBC 4.42 L Hgb 13.1 L Hct 38.1 L MCV 86.2 MCH 29.6 MCHC 34.4 RDW Std Deviation 40.7 RDW Coeff of John 13.0 Plt Count 218 MPV 9.5 Immature Gran % (Auto) 0.3 Neut % (Auto) 54.7 Lymph % (Auto) 32.8 [place] % (Auto) 8.7 Eos % (Auto) 2.5 Baso % (Auto) 1.0 Neut # (Auto) 4.02 Lymph # (Auto) 2.41 Salem # (Auto) 0.64 H Eos # (Auto) 0.18 Baso # (Auto) 0.07 Immature Gran # (Auto) 0.02 PT INR Sodium 137 Potassium 4.1 Chloride 103 Carbon Dioxide 29 Anion Gap 5 BUN 16 Creatinine 1.15 Est Cr Clr Drug Dosing 66.5 Est GFR ( Amer) 74.8 Est GFR (Non-Af Amer) 64.6 BUN/Creatinine Ratio 13.9 Glucose 113 H POC Glucose 111 H Calcium 9.4 Phosphorus 3.5 Total Bilirubin AST ALT Alkaline Phosphatase Troponin I High Sens 4.4 B-Natriuretic Peptide Total Protein Albumin 4.2 Globulin Albumin/Globulin Ratio Amylase Lipase SARS-CoV-2, RNA, NAAT 10/30/22 10/30/22 10/30/22 07:32 08:49 11:20 WBC RBC Hgb Hct MCV MCH MCHC RDW Std Deviation RDW Coeff of John Plt Count MPV Immature Gran % (Auto) Neut % (Auto) Lymph % (Auto) [place] % (Auto) Eos % (Auto) Baso % (Auto) Neut # (Auto) Lymph # (Auto) [place] # (Auto) Eos # (Auto) Baso # (Auto) Immature Gran # (Auto) PT INR Sodium Potassium Chloride Carbon Dioxide Anion Gap BUN Creatinine Est Cr Clr Drug Dosing Est GFR ( Amer) Est GFR (Non-Af Amer) BUN/Creatinine Ratio Glucose POC Glucose 134 H 121 H Calcium Phosphorus Total Bilirubin AST ALT Alkaline Phosphatase Troponin I High Sens 3.3 B-Natriuretic Peptide Total Protein Albumin Globulin Albumin/Globulin Ratio Amylase 29 Lipase 48 SARS-CoV-2, RNA, NAAT 10/30/22 14:16 WBC RBC Hgb Hct MCV MCH MCHC RDW Std Deviation RDW Coeff of John Plt Count MPV Immature Gran % (Auto) Neut % (Auto) Lymph % (Auto) [place] % (Auto) Eos % (Auto) Baso % (Auto) Neut # (Auto) Lymph # (Auto) [place] # (Auto) Eos # (Auto) Baso # (Auto) Immature Gran # (Auto) PT INR Sodium Potassium Chloride Carbon Dioxide Anion Gap BUN Creatinine Est Cr Clr Drug Dosing Est GFR ( Amer) Est GFR (Non-Af Amer) BUN/Creatinine Ratio Glucose POC Glucose Calcium Phosphorus Total Bilirubin AST ALT Alkaline Phosphatase Troponin I High Sens 2.7 B-Natriuretic Peptide Total Protein Albumin Globulin Albumin/Globulin Ratio Amylase Lipase SARS-CoV-2, RNA, NAAT Diagnostic Findings Telemetry personally reviewed: Sinus rhythm. No arrhythmia. ECGs personally reviewed: ECG 10/29/2022 at 1908: Sinus rhythm 69 bpm. ECG 10/30/2022 at 7:44 AM: Sinus bradycardia 59 bpm. Labs reviewed and notable for normal high-sensitivity troponin levels, stable renal function, very mild anemia, normal potassium, normal BNP. History and physical report reviewed. Chest x-ray 10/29/2022: Image personally reviewed. No obvious infiltrate. Radiology reports no acute cardiopulmonary abnormality. Medications Administered Current Inpatient Medications Acetaminophen (Acetaminophen 325 Mg Tab) 650 mg PO Q4H PRN PRN Reason: Pain or Fever Stop: 11/29/22 01:14 Last Admin: 10/30/22 13:14 Dose: 650 mg Aspirin (Aspirin 81 Mg Ectab) 81 mg PO QAM KALPESH Stop: 11/29/22 08:59 Last Admin: 10/30/22 08:07 Dose: 81 mg Atorvastatin Calcium (Atorvastatin 20 Mg Tab) 20 mg PO HS KALPESH Stop: 11/29/22 20:59 Fish Oil ([place]-3 (Purified Fish Oil) 1 Gm Cap) 2 gm PO BID KALPESH Stop: 11/29/22 08:59 Last Admin: 10/30/22 08:14 Dose: Not Given Heparin Sodium (Porcine) (Heparin Sod 5,000 Unit/0.5 Ml Vial) 5,000 units SQ Q12 KALPESH Stop: 11/29/22 08:59 Last Admin: 10/30/22 08:07 Dose: 5,000 units Morphine Sulfate (Morphine Sulfate 2 Mg/Ml Carp) 2 mg IV Q30M PRN PRN Reason: Chest Pain Stop: 11/13/22 01:14 Multivitamins/Minerals (Cerovite Adv Formula Tab) 1 tab PO QAM KALPESH Stop: 11/29/22 08:59 Last Admin: 10/30/22 08:14 Dose: Not Given Nitroglycerin (Nitroglycerin 2% Ointment 30gm Tube) 1 inch EXT Q6H KALPESH Stop: 11/29/22 01:59 Last Admin: 10/30/22 13:13 Dose: 1 inch Ondansetron HCl (Ondansetron Inj 2 Mg/Ml 2 Ml Vial) 4 mg IV Q6H PRN PRN Reason: Nausea Stop: 11/29/22 01:14 Tamsulosin HCl (Tamsulosin Hcl 0.4 Mg Cap) 0.4 mg PO HS KALPESH Stop: 11/29/22 20:59 PG Care Time/CCT Total # of Minutes Spent Total Time Spent with Patient: Total time spent is greater than 50% in coordination of care (as documented) at patient's floor/unit and/or counseling patient: Coding Level of Care Code 00912 INT INP/OBS CARE 2/55MIN Diagnoses High coronary artery calcium score R93.1 Chest pain R07.9 Hypertension I10 Hypercholesteremia E78.00 Abdominal pain R10.84 Abdominal location: generalized (5) Abdominal pain Abdominal location: generalized Qualified Code(s): R10.84 - Generalized abdominal pain
--- NOTE | 2022-10-30 17:59 | Discharge Summary ---
Date of Service October 30, 2022 Admission HPI Per Admitting Provider The patient is a 67-year-old male with a past medical history including hypertension, abdominal pain, diverticulitis, pancreatitis, diabetes mellitus, diverticulosis, hypercholesterolemia, incarcerated right inguinal hernia and hypertension. Due to patient having persistent chest pain of 3 weeks duration, he was sent for a CT cardiac calcium score, which was performed on with the following results: Left main 0, LAD 1416, LCx 48, RCA 389, total 1853. The patient has had 3 intermittent episodes of diverticulitis over the past year, and has had issues with reflux as well. Principal Diagnosis CAD Discharge Exam Constitutional WD/WN, vitals as above Eyes + anicteric sclerae Neck trachea midline, no thyromegaly Respiratory normal respiratory effort, lungs clear to auscultation Cardiovascular RRR, no murmur, no edema Gastrointestinal (Abdomen) normal bowel sounds, soft, nontender, no hepatosplenomegaly Musculoskeletal Head/Neck/Chest: normocephalic and head atraumatic Skin no rashes, warm and dry Neurologic moves all extremities Psychiatric A+Ox3, euthymic affect Lymphatic no cervical or axillary lymphadenopathy Discharge Data Allergies Allergy/AdvReac Type Severity Reaction Status Date / Time bupropion [From Wellbutrin] AdvReac Intermediate Palpitation Verified 10/29/22 20:09 s simvastatin [From Zocor] AdvReac Intermediate Cramping Verified 10/29/22 20:09 of the Muscles sitagliptin [From Januvia] AdvReac Intermediate Palpitation Verified 10/29/22 20:09 s trazodone AdvReac Intermediate BAD Verified 10/29/22 20:09 DREAMS, HEART PALPITATIONS Consultations 10/29/22 21:02 ED Decision to Admit Stat 10/30/22 01:15 Consult Cardiology Routine Hospital Course (1) Coronary artery disease: Patient had come to the hospital for concern of constant chest pain for the past 48 hours that was initially intermittent. Chest pain evaluation is ultimately negative for MO with negative troponin x3, normal stress echocardiogram, and normal echocardiogram. He was seen by our process owner who felt that his chest pain was not cardiac in nature and more likely GI or myofascial related. However, cardiology felt that the patient did have some degree of coronary artery disease based off of his calcium score and other risk factors. For this reason he would like to see the patient in 6 months for follow-up. Additionally, we have changed his statin from 20mg to 40 mg daily. No other changes to his medications at this time. We also discussed dietary and lifestyle modifications such as utilizing a Mediterranean diet and achieving 20 to 30 minutes of exercise daily and patient was very open to this and understanding. Otherwise we have no further recommendations at this time. Please follow-up with primary care provider within 1 week of discharge for further work-up and treatment. (2) Chest pain: See above (3) High coronary artery calcium score: See above (4) Hypertension: Continue home regimen (5) Diabetes mellitus: Continue metformin (6) Hypercholesteremia: Increased atorvastatin from 20 mg to 40 mg daily as above Plan Disposition: Discharge home CODE STATUS: Full code Total Time Total Time Spent Total Time Spent (In Minutes): >30 Discharge Plan Discharge Items Patient Disposition: Home - Self-Care Reason For Visit: CHEST PAIN, HIGH CALCIUM SCORE Discharge Diagnosis: Chest Pain Activity: Per Instructions section Non-emergency contact: Primary Care Provider Call non-emergency contact if: you have any medication questions, your symptoms worsen, your pain is not controlled, your pain is worsening and your pain is co ncerning for you Follow-up/Referrals: Isidro Tomas [Primary Care Provider] - (patient spoke with his pcp and discussed follow up appointment arrangements ) Addtl Attending Provider Instructions: You were seen in the hospital for chest pain that initially started as intermittent and transition to constant. While you were here you had cardiac markers taken that returned negative for ischemic heart damage or heart attack. You were seen by her process owner who felt that was appropriate for you to have a stress test while you were in the hospital. These results came back negative for ischemia or wall motion abnormalities indicating you currently do not have any heart damage. This makes the pain you are experiencing in your chest unlikely to be related to your heart. As you do have chronic issues with your GI tract and a history of GERD we feel that this pain is more related to that but we will have you follow-up with your primary care provider in the outpatient setting to help you investigate this further. Given your calcium score and age there is high probability that you do have coronary artery disease (plaque buildup in the wall of the arteries) however it is not nearly significant enough to cause any form of ischemia to your heart at this time. Because of this diagnosis, however, we would like to increase your atorvastatin from 20 mg daily to 40 mg daily. A prescription for this has been sent to your pharmacy and refills can be obtained by your primary care provider. Otherwise there are no other medication changes at this time. Your process owner, Dr. Carcamo, would like you to follow-up in 6 months. You will receive a call regarding this appointment. We discussed general lifestyle modification including Mediterranean diet as well as trying to achieve 20 to 30 minutes of aerobic exercise daily. Please try to add these modifications to your lifestyle which will help decrease your risk for heart attack or stroke. Is been a pleasure to be a part of your care and we wish you the best in both your health and recovery. Pending Studies at Discharge: No Stand-Alone Forms: [facility], Smoking Cessation Medications and DC Order Prescriptions: New atorvastatin 40 mg tablet 40 mg PO DAILY Qty: 30 2RF Continued aspirin 81 mg tablet,delayed release (DR/EC) 81 mg PO QAM niupjxaufonw-zwndahuy-hfdlbs Tablet 1 tab PO QAM coenzyme Q10 [CoQ-10] 100 mg Capsule 200 mg PO QAM olmesartan 40 mg tablet 40 mg PO DAILY tamsulosin 0.4 mg capsule 0.4 mg PO HS metformin 500 mg tablet extended release 24 hr 500 mg PO HS omega-3 acid ethyl esters 1 gram capsule 2 g PO BID Discontinued atorvastatin [Lipitor] 20 mg Tablet 20 mg PO HS Discharge Orders: Discharge Order (Routine); Ordered 10/30/22 Ordered By: Amari Bailey/Other Patient Handouts: CAD Admission Data Admit Date/Time: 10/30/22 00:06 Attending Provider: Tristen Salter Admit Provider: Mal Woodard Primary Care Provider: Isidro Tomas Other Providers: Mal Woodard ; Quinn Carcamo Other Interventions: Discharge Summary Assessment (RN) Last Done: 10/30/22 17:49 Supervising Physician Co-Signing Physician Notes I personally examined the patient and verified all ramires points of history and exam, discussed case, and agree with decision making with Dr Garcia. Ongoing pain. Discussed stress test extensively. Answered all questions the best my ability and to their satisfaction. Feels up to going home. Vitals noted, in general he is awake and alert pleasant no distress. HEENT normocephalic atraumatic mucous membranes moist. Some epigastric tenderness without guarding rebound or rigidity, definitely left sided predominantly lateral 10th rib tenderness/decreased range of motionbalanced ligamentous tensiontissue texture improved some, patient tolerated well. Troponins noted, stress test discussed with me by cardiology, discussed case with cardiology. Input greatly appreciated. Chest painseems to have been both upper GI and rib related. For now no specific treatment for upper GI given the he generally wants to be on a few of pills as possible. As it relates to ribs, taught deep breathing exercises, OMT done as above. Fortunately given that his pain was going on for 48 hours nonstop and he had serial negative troponins, that essentially precludes MO, reassuring stress test adds even more to it. His coronary calcium score does suggest that he has coronary disease, as does his gender, age, and risk factorsto that end, med management with 40 of atorvastatin, and aspirin, and we had an extensive discussion on lifestyle changes with a goal of 30 minutes of light cardiovascular exercise daily, and a shift towards a Mediterranean diet. Safe/stable for home.
--- NOTE | 2022-10-30 18:26 | Billing Data ---
Date of Service October 30, 2022 Coding Level of Care Code 31545 INP/OBS DISCH >30 MIN
[2022-10-30] MEDS ORDERED: TAMSULOSIN HCL 0.4 MG CAP PO SCH (21:00)
[2022-10-30] MEDS ORDERED: ATORVASTATIN 20 MG TAB PO SCH (21:00)
--- NOTE | 2022-10-30 21:28 | XCELERA ---
[id number] [id number]
--- NOTE | 2022-10-31 19:09 | Electrocardiogram Report ---
Test Reason : Blood Pressure : / mmHG Vent. Rate : 069 BPM Atrial Rate : 069 BPM P-R Int : 152 ms QRS Dur : 094 ms QT Int : 406 ms P-R-T Axes : 050 042 053 degrees QTc Int : 435 ms Normal sinus rhythm Normal ECG When compared with ECG of 07-OCT-2022 22:09, No significant change was found Confirmed by Quinn Carcamo ([id number]) on 10/31/2022 7:09:09 PM Referred By: Isidro Tomas Confirmed By:Quinn Carcamo
--- NOTE | 2022-10-31 21:37 | Electrocardiogram Report ---
Test Reason : Blood Pressure : / mmHG Vent. Rate : 059 BPM Atrial Rate : 059 BPM P-R Int : 162 ms QRS Dur : 088 ms QT Int : 442 ms P-R-T Axes : 049 026 054 degrees QTc Int : 437 ms Sinus bradycardia When compared with ECG of 29-OCT-2022 19:08, No significant change Confirmed by Quinn Carcamo ([id number]) on 10/31/2022 9:36:36 PM Referred By: Isidro Tomas Confirmed By:Quinn Carcamo
== END 2022-10-30 18:10 | disposition home or self-care (01) | DRG 313 ==
LOC: ED 19:02 → 2S 10-30 00:06 → SUATTDRO 10-30 00:06 → 2S 10-30 01:01

== ENCOUNTER 2024-08-22 10:00 | Observation (INO) ==
--- NOTE | 2024-08-22 10:55 | Emergency Department Note ---
Impression & Plan Chest pain, Elevated troponin ED Provider Note ED Provider Note NAME: SOPHIE ZAMBRANO Jr AGE:69 SEX: Male : 1955 ARRIVES VIA: Private vehicle INFORMANT: Patient ED PROVIDER(s): Diane Pereira DO CHIEF COMPLAINT: Chest pain HPI: This is a 69-year-old male who presents to the emergency department due to concern for chest pain. Patient stated he awoke with pain and a sense of fluttering at around 3 AM. He states the pain has been waxing and waning, no change with position or exertion. Patient has previously seen cardiology due to an elevated calcium score. He did saw Dr. Carcamo in June and everything was felt to be stable at that time. He had previously undergone an echo and stress test. He states over the last 3 weeks he did have an upper respiratory infection that started in the sinuses and moved into his chest. He states he does feel as though he is improved. Patient states pain is otherwise nonradiating, he denies shortness of breath, dizziness, nausea or vomiting. No recent fevers or chills. No recent leg swelling, no change in bowel or bladder function. No change in medications or diet. He states he has had reflux previously although this does not feel similar to prior episodes of reflux. PAST MEDICAL HISTORY:See Below PAST SURGICAL HISTORY:See Below FAMILY HISTORY:See Below SOCIAL HISTORY:See Below HOME MEDICATIONS:See Below ALLERGIES:See Below VITALS:See Below PHYSICAL EXAMINATION: GENERAL: alert, well appearing, well nourished, no distress, non-toxic EYE EXAM: normal conjunctiva, PERRL and EOM's grossly intact OROPHARYNX: no exudate, no erythema, lips, buccal mucosa, and tongue normal and mucous membranes are moist NECK: supple, no nuchal rigidity, no adenopathy, non-tender LUNGS: Clear to auscultation. Normal chest wall mechanics, no w/r/r HEART: no murmurs, S1 normal and S2 normal, no reproducible pain with palpation ABDOMEN: abdomen soft, non-tender, normo-active bowel sounds, no masses, no rebound or guarding. BACK: Back is symmetrical on inspection and there is no deformity, no midline tenderness, no CVA tenderness. SKIN: no rashes, petechiae, orbruising UPPER EXTREMITIES: upper extremities are grossly normal. FROM, nml pulses b/l. LOWER EXTREMITIES: No pitting edema. FROM, nml pulses b/l. NEURO EXAM: Normal sensorium, cranial nerves II-XII grossly intact, normal speech, no facial droop,nogross weakness of arms, no gross weakness of legs. Gross sensation intact. No ataxia. Vital Signs: reviewed and remarkable Differential Diagnosis: acute coronary syndrome, pericarditis, pulmonary embolus, aortic dissection, pneumonia, pneumothorax, musculoskeletal pain, shingles, GERD, GI bleed, as well as others were considered MEDICAL DECISION MAKING: THis is a 69 yo male who presents to the ER with concern for chest pain. He was afebrile and VS stable. Patient with multiple risk factors for CAD and prior elevation of calcium scoring. Labs drawn and sent, IV established, EKG and CXR performed and interpreted at bedside, and patient placed on telemetry. Initial troponin elevated. EKG reassuring. Patient given IV tylenol and IV pepcid. Nitropaste added. A repeat troponin sent and was still elevated. No change in repeat EKG. Case discussed with economic developer cardiology and then with hospitalist team for additional evaluation and mgmt. I do not suspect acute vascular pathology. No evidence of infection. Aspiring added additionally. Cardiology did not feel heparin drip needed at this time. Consultation(s): 1433: Discussed with Dr. Kenyon. 1885: Discussed with Dr. Recinos, [facility] hospitalist team, for additional evaluation and management. ER Treatment Provided: See below Diagnostics Interpreted By Me: -ECG: Sinus bradycardia 57, normal axis, normal intervals, no acute ST/T wave changes EKG #2: Sinus bradycardia at 53, normal axis, normal intervals, no acute ST/T wave changes -Cardiac Monitoring: An order was placed for continuous cardiac monitoring. The monitor shows a rate of 66 with normal sinus rhythm. -Laboratory studies: As stated above and show below. -Imaging studies: X-ray Chest: A single view study of the chest was reviewed and was negative for cardiomegaly, focal infiltrate, effusion, pulmonary edema, or wide mediastinum. Triage Nursing Note Reviewed Prior/Outside Records Reviewed Past Med/Surg History Problem List (Updated 08/22/24 @ 15:00 by Diane Pereira DO) Elevated troponin (Acute) Chest pain (Acute) Mitral and aortic regurgitation Iron deficiency Diabetic peripheral neuropathy RLS (restless legs syndrome) Idiopathic peripheral neuropathy High coronary artery calcium score Diverticulitis Chest pain (Acute) Hypertension (Acute) Coronary artery disease (Acute) H/O right inguinal hernia repair (10/24/21) Open Right Inguinal Hernia Repair with Mesh, excision of cord lipoma, Injection Kenalog Left Groin(Right) - Justin Roldan DO 10/24/2021 Encounter for pre-operative examination Abdominal pain (Acute) Acute pancreatitis Diabetes mellitus High serum lactate Diverticulosis Elevated lactic acid level (Acute) Hyperglycemia (Acute) Incarcerated right inguinal hernia Left groin pain Hypercholesteremia HTN (hypertension) Medical History Diverticulosis Diabetes Back pain Pancreatitis Surgical History Hx of oral surgery History of cataract surgery History of colonoscopy History of hernia surgery Family History Mother Family history of diabetes mellitus Social History Smoking Status: Former smoker Tobacco Type: Cigarettes Second Hand Exposure: No; Do You Dip or Chew Tobacco: No; Hx Alcohol Use: No Hx Substance Use: No Preferred Language: Khmer Communication Ability: Effective Visual Impairment: No Limitations String Laster Required: No Beliefs That Will Affect Care: None marital status: Current Living Situation: Spouse Current Living Situation Comment: home with spouse current occupational status: retired Feels Safe at Home: Yes during the past year weight has: decreased > 10 lbs Assistive Devices: Denture - Upper and Denture - Lower Allergies Allergies Allergy/AdvReac Type Severity Reaction Status Date / Time bupropion [From Wellbutrin] AdvReac Intermediate Palpitation Verified 06/30/24 09:43 s simvastatin [From Zocor] AdvReac Intermediate Cramping Verified 06/30/24 09:43 of the Muscles sitagliptin [From Januvia] AdvReac Intermediate Palpitation Verified 06/30/24 09:43 s trazodone AdvReac Intermediate BAD Verified 06/30/24 09:43 DREAMS, HEART PALPITATIONS Home Meds Home Medications Medication Instructions Recorded Confirmed coenzyme Q10 100 mg capsule 200 mg PO QAM 03/22/21 08/22/24 (CoQ-10) ynyzgxvvftzl-hfznozsp-[id number] tablet 1 tab PO QAM 03/22/21 08/22/24 aspirin 81 mg tablet,delayed 81 mg PO QAM 10/04/21 08/22/24 release metformin 500 mg tablet,extended 500 mg PO HS 08/05/22 08/22/24 release 24 hr omega-3 acid ethyl esters 1 gram 2 g PO BID 08/05/22 08/22/24 capsule tamsulosin 0.4 mg capsule 0.4 mg PO HS 08/05/22 08/22/24 amlodipine 5 mg tablet 5 mg PO DAILY 06/29/23 08/22/24 metoprolol succinate 25 mg 25 mg PO DAILY 06/29/23 08/22/24 tablet,extended release 24 hr (Toprol XL) cyclobenzaprine 5 mg tablet 5 mg PO TID 04/18/24 08/22/24 ropinirole 1 mg tablet 3 mg PO HS 04/18/24 08/22/24 gabapentin 300 mg capsule 300 mg PO TID 08/22/24 08/22/24 Previous Rx's Medication Instructions Recorded atorvastatin 40 mg tablet 40 mg PO DAILY #30 tabs 10/30/22 Results & Data (ED) Vital Signs Vital Signs - 24 hr 08/22/24 10:05 08/22/24 10:18 08/22/24 10:19 Temperature 36.4 C L Temperature Source Oral Pulse Rate 64 63 65 Pulse Rate [Apical] Pulse Rate from SpO2 Sensor 63 Respiratory Rate 20 23 Respiratory Effort / Characteristics Non-Labored Spontaneous Respiratory Depth Normal Respiratory Pattern Regular Blood Pressure 138/69 Blood Pressure [Left Arm] Blood Pressure Mean 92 Blood Pressure Mean [Left Arm] Blood Pressure Position [Left Arm] Pulse Oximetry 98 97 Oxygen Delivery Method Room Air Sepsis Recent Fever Within 48 Hours No Sepsis New/Unexplained Change in Mental Status N/A Sepsis Action Taken by Nursing No Action Required 08/22/24 10:25 08/22/24 10:25 08/22/24 10:25 Temperature Temperature Source Pulse Rate Pulse Rate [Apical] Pulse Rate from SpO2 Sensor Respiratory Rate Respiratory Effort / Characteristics Respiratory Depth Respiratory Pattern Blood Pressure 124/64 124/64 124/64 Blood Pressure [Left Arm] Blood Pressure Mean 93 93 93 Blood Pressure Mean [Left Arm] Blood Pressure Position [Left Arm] Pulse Oximetry Oxygen Delivery Method Sepsis Recent Fever Within 48 Hours Sepsis New/Unexplained Change in Mental Status Sepsis Action Taken by Nursing 08/22/24 10:30 08/22/24 10:30 08/22/24 10:33 Temperature Temperature Source Pulse Rate 62 Pulse Rate [Apical] Pulse Rate from SpO2 Sensor 62 Respiratory Rate 15 Respiratory Effort / Characteristics Respiratory Depth Respiratory Pattern Blood Pressure 122/62 122/62 Blood Pressure [Left Arm] Blood Pressure Mean 86 86 Blood Pressure Mean [Left Arm] Blood Pressure Position [Left Arm] Pulse Oximetry 97 Oxygen Delivery Method Sepsis Recent Fever Within 48 Hours Sepsis New/Unexplained Change in Mental Status Sepsis Action Taken by Nursing 08/22/24 10:35 08/22/24 10:45 08/22/24 10:45 Temperature Temperature Source Pulse Rate 61 Pulse Rate [Apical] Pulse Rate from SpO2 Sensor 61 Respiratory Rate 22 Respiratory Effort / Characteristics Respiratory Depth Respiratory Pattern Blood Pressure 124/64 124/64 Blood Pressure [Left Arm] Blood Pressure Mean 89 89 Blood Pressure Mean [Left Arm] Blood Pressure Position [Left Arm] Pulse Oximetry 96 Oxygen Delivery Method Sepsis Recent Fever Within 48 Hours Sepsis New/Unexplained Change in Mental Status Sepsis Action Taken by Nursing 08/22/24 10:47 08/22/24 11:00 08/22/24 11:00 Temperature Temperature Source Pulse Rate 59 L Pulse Rate [Apical] Pulse Rate from SpO2 Sensor 59 L Respiratory Rate 27 H Respiratory Effort / Characteristics Respiratory Depth Respiratory Pattern Blood Pressure 139/80 139/80 Blood Pressure [Left Arm] Blood Pressure Mean 89 89 Blood Pressure Mean [Left Arm] Blood Pressure Position [Left Arm] Pulse Oximetry 96 Oxygen Delivery Method Sepsis Recent Fever Within 48 Hours Sepsis New/Unexplained Change in Mental Status Sepsis Action Taken by Nursing 08/22/24 11:00 08/22/24 11:11 08/22/24 11:14 Temperature Temperature Source Pulse Rate 57 L 62 Pulse Rate [Apical] Pulse Rate from SpO2 Sensor 57 L 58 L Respiratory Rate 20 20 Respiratory Effort / Characteristics Respiratory Depth Respiratory Pattern Blood Pressure 139/80 Blood Pressure [Left Arm] Blood Pressure Mean 89 Blood Pressure Mean [Left Arm] Blood Pressure Position [Left Arm] Pulse Oximetry 94 95 Oxygen Delivery Method Sepsis Recent Fever Within 48 Hours Sepsis New/Unexplained Change in Mental Status Sepsis Action Taken by Nursing 08/22/24 11:15 08/22/24 11:15 08/22/24 11:32 Temperature Temperature Source Pulse Rate Pulse Rate [Apical] Pulse Rate from SpO2 Sensor Respiratory Rate Respiratory Effort / Characteristics Respiratory Depth Respiratory Pattern Blood Pressure 134/73 134/73 95/72 L Blood Pressure [Left Arm] Blood Pressure Mean 91 91 77 Blood Pressure Mean [Left Arm] Blood Pressure Position [Left Arm] Pulse Oximetry Oxygen Delivery Method Sepsis Recent Fever Within 48 Hours Sepsis New/Unexplained Change in Mental Status Sepsis Action Taken by Nursing 08/22/24 11:32 08/22/24 11:32 08/22/24 11:32 Temperature Temperature Source Pulse Rate 57 L Pulse Rate [Apical] Pulse Rate from SpO2 Sensor 57 L Respiratory Rate 21 Respiratory Effort / Characteristics Respiratory Depth Respiratory Pattern Blood Pressure 95/72 L 95/72 L Blood Pressure [Left Arm] Blood Pressure Mean 77 77 Blood Pressure Mean [Left Arm] Blood Pressure Position [Left Arm] Pulse Oximetry 96 Oxygen Delivery Method Sepsis Recent Fever Within 48 Hours Sepsis New/Unexplained Change in Mental Status Sepsis Action Taken by Nursing 08/22/24 11:44 08/22/24 11:45 08/22/24 11:50 Temperature Temperature Source Pulse Rate 61 58 L Pulse Rate [Apical] Pulse Rate from SpO2 Sensor 61 58 L Respiratory Rate 23 17 Respiratory Effort / Characteristics Respiratory Depth Respiratory Pattern Blood Pressure 137/72 Blood Pressure [Left Arm] Blood Pressure Mean 78 Blood Pressure Mean [Left Arm] Blood Pressure Position [Left Arm] Pulse Oximetry 97 96 Oxygen Delivery Method Sepsis Recent Fever Within 48 Hours Sepsis New/Unexplained Change in Mental Status Sepsis Action Taken by Nursing 08/22/24 12:01 08/22/24 12:01 08/22/24 12:14 Temperature Temperature Source Pulse Rate 59 L Pulse Rate [Apical] Pulse Rate from SpO2 Sensor 58 L Respiratory Rate 19 Respiratory Effort / Characteristics Respiratory Depth Respiratory Pattern Blood Pressure 121/75 121/75 Blood Pressure [Left Arm] Blood Pressure Mean 89 89 Blood Pressure Mean [Left Arm] Blood Pressure Position [Left Arm] Pulse Oximetry 97 Oxygen Delivery Method Sepsis Recent Fever Within 48 Hours Sepsis New/Unexplained Change in Mental Status Sepsis Action Taken by Nursing 08/22/24 12:15 08/22/24 12:15 08/22/24 12:29 Temperature Temperature Source Pulse Rate 63 Pulse Rate [Apical] Pulse Rate from SpO2 Sensor 58 L Respiratory Rate 15 Respiratory Effort / Characteristics Respiratory Depth Respiratory Pattern Blood Pressure 122/69 122/69 Blood Pressure [Left Arm] Blood Pressure Mean 96 96 Blood Pressure Mean [Left Arm] Blood Pressure Position [Left Arm] Pulse Oximetry 97 Oxygen Delivery Method Sepsis Recent Fever Within 48 Hours Sepsis New/Unexplained Change in Mental Status Sepsis Action Taken by Nursing 08/22/24 12:30 08/22/24 12:30 08/22/24 12:56 Temperature Temperature Source Pulse Rate 55 L Pulse Rate [Apical] Pulse Rate from SpO2 Sensor 56 L Respiratory Rate 15 Respiratory Effort / Characteristics Respiratory Depth Respiratory Pattern Blood Pressure 122/67 122/67 Blood Pressure [Left Arm] Blood Pressure Mean 89 89 Blood Pressure Mean [Left Arm] Blood Pressure Position [Left Arm] Pulse Oximetry 96 Oxygen Delivery Method Sepsis Recent Fever Within 48 Hours Sepsis New/Unexplained Change in Mental Status Sepsis Action Taken by Nursing 08/22/24 13:05 08/22/24 13:38 08/22/24 13:56 Temperature Temperature Source Pulse Rate 56 L 60 66 Pulse Rate [Apical] Pulse Rate from SpO2 Sensor 56 L 55 L 55 L Respiratory Rate 20 16 20 Respiratory Effort / Characteristics Respiratory Depth Respiratory Pattern Blood Pressure Blood Pressure [Left Arm] Blood Pressure Mean Blood Pressure Mean [Left Arm] Blood Pressure Position [Left Arm] Pulse Oximetry 96 97 98 Oxygen Delivery Method Sepsis Recent Fever Within 48 Hours Sepsis New/Unexplained Change in Mental Status Sepsis Action Taken by Nursing 08/22/24 14:00 08/22/24 14:12 08/22/24 14:15 Temperature Temperature Source Pulse Rate 50 L 55 L Pulse Rate [Apical] Pulse Rate from SpO2 Sensor 50 L 55 L Respiratory Rate 16 17 Respiratory Effort / Characteristics Respiratory Depth Respiratory Pattern Blood Pressure 130/79 Blood Pressure [Left Arm] Blood Pressure Mean 109 Blood Pressure Mean [Left Arm] Blood Pressure Position [Left Arm] Pulse Oximetry 97 97 Oxygen Delivery Method Sepsis Recent Fever Within 48 Hours Sepsis New/Unexplained Change in Mental Status Sepsis Action Taken by Nursing 08/22/24 14:30 08/22/24 14:45 08/22/24 15:15 Temperature Temperature Source Pulse Rate 57 L Pulse Rate [Apical] 56 L Pulse Rate from SpO2 Sensor Respiratory Rate 18 Respiratory Effort / Characteristics Non-Labored Spontaneous Respiratory Depth Respiratory Pattern Blood Pressure 118/92 Blood Pressure [Left Arm] 117/69 Blood Pressure Mean 113 Blood Pressure Mean [Left Arm] 85 Blood Pressure Position [Left Arm] Lying Pulse Oximetry 97 Oxygen Delivery Method Room Air Sepsis Recent Fever Within 48 Hours Sepsis New/Unexplained Change in Mental Status Sepsis Action Taken by Nursing 08/22/24 15:16 Temperature Temperature Source Pulse Rate Pulse Rate [Apical] Pulse Rate from SpO2 Sensor Respiratory Rate Respiratory Effort / Characteristics Respiratory Depth Respiratory Pattern Blood Pressure Blood Pressure [Left Arm] Blood Pressure Mean Blood Pressure Mean [Left Arm] Blood Pressure Position [Left Arm] Pulse Oximetry 96 Oxygen Delivery Method Room Air Sepsis Recent Fever Within 48 Hours Sepsis New/Unexplained Change in Mental Status Sepsis Action Taken by Nursing Laboratory Data 08/23/24 03:42 08/22/24 10:22 Lab Results 08/22/24 08/22/24 08/22/24 Range/Units 10:22 11:10 12:52 WBC 6.91 (4.8-10.8) K/ul RBC 4.76 (4.70-6.10) M/uL Hgb 14.1 (14.0-18.0) g/dl Hct 40.5 L (42.0-52.0) % MCV 85.1 (80.0-100.0) fL MCH 29.6 (25.0-34.0) pg MCHC 34.8 (32.0-36.0) g/dL RDW Std Deviation 38.4 (36.4-46.3) fL RDW Coeff of John 12.3 (11.5-14.5) % Plt Count 258 (130-400) K/uL MPV 9.6 (9.4-12.4) fL Immature Gran % (Auto) 0.3 % Neut % (Auto) 68.0 % Lymph % (Auto) 22.9 % Kern % (Auto) 6.2 % Eos % (Auto) 1.7 % Baso % (Auto) 0.9 % Neut # (Auto) 4.70 (1.40-6.50) K/uL Lymph # (Auto) 1.58 (1.20-3.40) K/uL Kern # (Auto) 0.43 (0.11-0.59) K/uL Eos # (Auto) 0.12 (0.00-0.50) K/uL Baso # (Auto) 0.06 (0.00-0.20) K/uL Immature Gran # (Auto) 0.02 (0.01-0.20) K/uL Sodium 135 L (136-145) mmol/L Potassium 3.9 (3.5-5.1) mmol/L Chloride 97 L (98-107) mmol/L Carbon Dioxide 30 (21-32) mmol/L Anion Gap 8 (3-11) BUN 19 (6-23) mg/dl Creatinine 1.16 (0.6-1.4) mg/dl Est Cr Clr Drug Dosing 64.1 ml/min eGFR 67.34 BUN/Creatinine Ratio 16.4 (10-20) Glucose 275 H (70-99(Fasting)) mg/dl Calcium 9.5 (8.6-10.3) mg/dl Magnesium 1.5 L (1.7-2.4) mg/dl Total Bilirubin 1.0 (0.2-1.0) mg/dl AST 24 (13-39) U/L ALT 19 (7-52) U/L Alkaline Phosphatase 49 (34-104) U/L Troponin I High Sens 53.1 H* 54.2 H* (0-20) pg/ml Total Protein 7.5 (6.0-8.3) gm/dl Albumin 4.5 (3.4-5.0) gm/dl Globulin 3.0 (2.5-4.0) gm/dl Albumin/Globulin Ratio 1.5 (0.9-2) Lipase 33 (11-82) U/L TSH 3.170 (0.300-4.500) uIu/ml Adenovirus (PCR) Not Detected (NotDetected) B. pertussis DNA (PCR) Not Detected (NotDetected) B.parapertussis DNA PCR Not Detected (NotDetected) C. pneumoniae DNA (PCR) Not Detected (NotDetected) Coronavirus OC43 (PCR) Not Detected (NotDetected) Coronavirus HKU1 (PCR) Not Detected (NotDetected) Coronavirus 229E (PCR) Not Detected (NotDetected) SARS-CoV-2 (PCR) Not Detected (NotDetected) Coronavirus NL63 (PCR) Not Detected (NotDetected) Human Metapneumovir PCR Not Detected (NotDetected) Influenza Type A (PCR) Not Detected (NotDetected) Influenza Type B (PCR) Not Detected (NotDetected) M. pneumoniae (PCR) Not Detected (NotDetected) Parainfluenza 1 (PCR) Not Detected (NotDetected) Parainfluenza 2 (PCR) Not Detected (NotDetected) Parainfluenza 3 (PCR) Not Detected (NotDetected) Parainfluenza 4 (PCR) Not Detected (NotDetected) RSV (PCR) Not Detected (NotDetected) Entero/Rhino (PCR) Not Detected (NotDetected) Administered Medications Cyclobenzaprine HCl (Cyclobenzaprine Hcl 5 Mg Tab) 5 mg PO TID [facility] Stop: 09/21/24 20:59 Last Admin: 08/22/24 20:57 Dose: 5 mg Documented By: LMP Gabapentin (Gabapentin 300 Mg Cap) 300 mg PO TID [facility] Stop: 09/21/24 20:59 Last Admin: 08/22/24 20:56 Dose: 300 mg Documented By: LMP Insulin Aspart (Insulin Aspart Per Unit Charge) 0 units SC ACHS [facility] Stop: 09/21/24 16:29 Last Admin: 08/22/24 21:12 Dose: 5 units Documented By: LMP Co-signed By: KINZA Admin: 08/22/24 19:15 Dose: Not Given Documented By: LMP Co-signed By: AM Insulin Glargine (Lantus Per Unit Charge) 5 units SQ BID [facility] Stop: 09/21/24 20:59 Last Admin: 08/22/24 21:15 Dose: 5 units Documented By: LMP Co-signed By: KINZA Ropinirole HCl (Ropinirole Hcl 1 Mg Tablet) 3 mg PO [facility] Stop: 09/21/24 20:59 Last Admin: 08/22/24 20:57 Dose: 3 mg Documented By: LMP Tamsulosin HCl (Tamsulosin Hcl 0.4 Mg Cap) 0.4 mg PO [facility] Stop: 09/21/24 20:59 Last Admin: 08/22/24 20:57 Dose: 0.4 mg Documented By: LMP Discontinued Medications Aspirin (Aspirin 325 Mg Ectab) 325 mg PO NOW STA Stop: 08/22/24 14:57 Last Admin: 08/22/24 15:35 Dose: 325 mg Documented By: AILYN Famotidine (Pepcid 20mg Iv Push) 20 mg in 5 mls @ 2.5 mls/min IV NOW STA Stop: 08/22/24 12:51 Last Admin: 08/22/24 13:08 Dose: 2.5 mls/min Documented By: NDW Acetaminophen (Ofirmev) 1,000 mg in 100 mls @ 400 mls/hr IV NOW STA Stop: 08/22/24 13:04 Last Infusion: 08/22/24 13:29 Dose: Infused Documented By: Admin: 08/22/24 13:08 Dose: 400 mls/hr Documented By: NDW Pantoprazole Sodium (Protonix) 40 mg in 10 mls @ 5 mls/min IV NOW ONE Stop: 08/22/24 15:00 Last Admin: 08/22/24 15:24 Dose: 5 mls/min Documented By: AILYN Magnesium Sulfate/Dextrose (Magnesium Sulfate / D5w) 1 gm in 100 mls @ 50 mls/hr IV Q2H [facility] Stop: 08/22/24 20:29 Last Infusion: 08/22/24 20:18 Dose: Infused Documented By: Admin: 08/22/24 18:13 Dose: 50 mls/hr Documented By: Infusion: 08/22/24 18:13 Dose: Infused Documented By: Admin: 08/22/24 16:36 Dose: 50 mls/hr Documented By: AILYN Sodium Chloride (Nss) 250 mls @ 999 mls/hr IV .Q16M ONE Stop: 08/23/24 00:53 Last Infusion: 08/23/24 01:18 Dose: Infused Documented By: Admin: 08/23/24 00:51 Dose: 999 mls/hr Documented By: LMP Nitroglycerin (Nitroglycerin 2% Ointment 30gm Tube) 0.5 inch EXT NOW STA Stop: 08/22/24 13:36 Last Admin: 08/22/24 13:52 Dose: 0.5 inch Documented By: [facility] Imaging Data Radiologist's Impression: Chest X-Ray 08/22/24 10:41 XR chest 1V portable CLINICAL HISTORY: Chest pain. COMPARISON STUDY: Chest CT from October 07, 2022. Chest radiograph October 29, 2022. FINDINGS: Mild elevation of the left hemidiaphragm is unchanged. There is no consolidation to suggest pneumonia. Minimal left basilar opacity favors atelectasis. There is no pneumothorax or pleural effusion. Cardiac size is normal. Mediastinal contours are normal. There is no evidence for pulmonary edema. IMPRESSION: No acute cardiopulmonary findings. No significant change in appearance of the chest. ACT 112: Negative or not required by law. Electronically signed by: Randall Ball M.D. 08/22/2024 10:58 AM Discharge Plan Visit Data Chief Complaint: Chest Pain Stated Complaint: CHEST PAIN, LOWER BACK PAIN, COUGHING ED Provider: Diane Pereira Discharge Problem: Chest pain, Elevated troponin Patient Disposition: Admitted As Inpatient Discharge Instructions Interventions: ED Discharge Assessment Last Done: 08/22/24 17:28
--- NOTE | 2024-08-22 11:00 | XRay Report ---
XR chest 1V portable CLINICAL HISTORY: Chest pain. COMPARISON STUDY: Chest CT from October 07, 2022. Chest radiograph October 29, 2022. FINDINGS: Mild elevation of the left hemidiaphragm is unchanged. There is no consolidation to suggest pneumonia. Minimal left basilar opacity favors atelectasis. There is no pneumothorax or pleural effu carlton. Cardiac size is normal. Mediastinal contours are normal. There is no evidence for pulmonary destin ma. IMPRESSION: No acute cardiopulmonary findings. No significant change in appearance of the chest. ACT 112: Negative or not required by law. Electronically signed by: Randall Ball M.D. 08/22/2024 10:58 AM
[2024-08-22 11:10] LABS: Basophils # (auto) 0.06 K/uL (0.00-0.20); Basophils % (auto) 0.9 %; Eosinophils # (auto) 0.12 K/uL (0.00-0.50); Eosinophils % (auto) 1.7 %; Hematocrit (blood only) 40.5 % (42.0-52.0); Hemoglobin 14.1 g/dl (14.0-18.0); Immature Granulocytes # (auto) 0.02 K/uL (0.01-0.20); Immature Granulocytes % (auto) 0.3 %; Lymphocytes # (auto) 1.58 K/uL (1.20-3.40); Lymphocytes % (auto) 22.9 %; Mean Corpuscular Hemoglobin 29.6 pg (25.0-34.0); Mean Corpuscular Hgb Conc 34.8 g/dL (32.0-36.0); Mean Corpuscular Volume 85.1 fL (80.0-100.0); Mean Platelet Volume 9.6 fL (9.4-12.4); Monocytes # (auto) 0.43 K/uL (0.11-0.59); Monocytes % (auto) 6.2 %; Platelet Count 258 K/uL (130-400); RDW Coefficient of Variation 12.3 % (11.5-14.5); RDW Standard Deviation 38.4 fL (36.4-46.3); Red Blood Count 4.76 M/uL (4.70-6.10); White Blood Count 6.91 K/ul (4.8-10.8)
[2024-08-22 11:31] LABS: Albumin Globulin Ratio 1.5 (0.9-2); Albumin Level 4.5 gm/dl (3.4-5.0); BUN Creatinine Ratio 16.4 (10-20); Calcium 9.5 mg/dl (8.6-10.3); Creatinine Clr Calc Pharmacy 64.1 ml/min; Magnesium 1.5 mg/dl (1.7-2.4); Potassium 3.9 mmol/L (3.5-5.1); Total Protein 7.5 gm/dl (6.0-8.3)
[2024-08-22 11:40] LABS: Troponin I High Sensitivity 53.1 pg/ml (0-20)
[2024-08-22 11:44] LABS: Thyroid Stimulating Hormone 3.17 uIu/ml (0.300-4.500)
[2024-08-22 13:08] LABS: Adenovirus PCR Not Detected (NotDetected); Bordetella parapertussis PCR Not Detected (NotDetected); Bordetella pertussis PCR Not Detected (NotDetected); Chlamydia pneumoniae PCR Not Detected (NotDetected); Coronavirus 229E PCR Not Detected (NotDetected); Coronavirus CoV-2 (COVID19)PCR Not Detected (NotDetected); Coronavirus HKU1 PCR Not Detected (NotDetected); Coronavirus NL63 PCR Not Detected (NotDetected); Coronavirus OC43PCR Not Detected (NotDetected); Human Metapneumovirus PCR Not Detected (NotDetected); Influenza A PCR Not Detected (NotDetected); Influenza B PCR Not Detected (NotDetected); Mycoplasma pneumoniae PCR Not Detected (NotDetected); Parainfluenza Virus 1 PCR Not Detected (NotDetected); Parainfluenza Virus 2 PCR Not Detected (NotDetected); Parainfluenza Virus 3 PCR Not Detected (NotDetected); Parainfluenza Virus 4 PCR Not Detected (NotDetected); Respiratory Syncytial VirusPCR Not Detected (NotDetected); Rhinovirus/Enterovirus PCR Not Detected (NotDetected)
[2024-08-22] MEDS: ACETAMINOPHEN 1,000 MG/100 ML VIAL IV STA (13:08)
[2024-08-22] MEDS: FAMOTIDINE 20MG IV PUSH 20 MG/5 ML SYR IV STA (13:08)
--- NOTE | 2024-08-22 13:48 | Electrocardiogram Report ---
Test Reason : Blood Pressure : */* mmHG Vent. Rate : 57 BPM Atrial Rate : 57 BPM P-R Int : 168 ms QRS Dur : 96 ms QT Int : 438 ms P-R-T Axes : 59 52 67 degrees QTcB Int : 426 ms Sinus bradycardia Otherwise normal ECG When compared with ECG of 30-Oct-2022 07:44, Fusion complexes are no longer Present Confirmed by Stephan Kenyon ([id number]) on 08/22/2024 1:48:04 PM Referred By: REFERRED SELF Confirmed By: Stephan Kenyon
[2024-08-22] MEDS: NITROGLYCERIN 2% OINTMENT 30GM TUBE EXT STA (13:52)
[2024-08-22] MEDS: PANTOprazole 40 MG/10 ML SYR IV ONE (15:24)
[2024-08-22] MEDS: ASPIRIN 325 MG ECTAB PO STA (15:35)
[2024-08-22] MEDS ORDERED: CARBOHYDRATES FOR HYPOGLYCEMIA PO PRN (16:15)
[2024-08-22] MEDS ORDERED: GLUCOSE 40% GEL 15 GM TUBE PO PRN (16:15)
[2024-08-22] MEDS ORDERED: GLUCAGON FOR INJ 1 MG VIAL SQ PRN (16:15)
[2024-08-22] MEDS ORDERED: DEXTROSE 50% 50 ML SYRINGE IV PRN (16:15)
[2024-08-22] MEDS ORDERED: ACETAMINOPHEN 325 MG TAB PO PRN (16:15)
[2024-08-22] MEDS ORDERED: GLUCOSE 10 TAB/TUBE PO PRN (16:15)
--- NOTE | 2024-08-22 16:25 | History & Physical Report ---
Date of Service August 22, 2024 Assessment & Plan (1) Chest pain: Plan: Assessment: 1. Chest pain with elevated troponin. Question of possible evolving non-STEMI. P.o. aspirin stat recommended and given. Cardiology's been notified by emergency department per ER attending heparin drip will be determined by cardiology. Serial troponins. Echocardiogram. Stress echocardiogram was negative for ischemia in October 2022. 2. Diabetes mellitus type 2. Appears uncontrolled. Random blood glucose 275 mg/dL. Basal bolus insulin regimen has been ordered. A1c in the morning. 3. Hypertension. Continue same medication 4. Dyslipidemia. Continue home statin therapy. 5. History of diabetic neuropathy. 6. Hypomagnesemia. 2 g of mag sulfate ordered for replacement. Recheck in the a.m. Plan: As discussed above. Please refer to orders for further planning. History of Present Illness Chief Complaint: Chest pain Primary Care Provider: Isidro Tomas This 69-year-old male around 3 AM today developed left-sided chest pain radiated across the precordium. But left worse greater than right. Presented the ER today for further evaluation and treatment. First troponin was 53.1. Second opponent 54.2. EKG was nonacute. Magnesium was found to be 1.5. Course emergency department he received topical nitroglycerin. Protonix. Famotidine. Aspirin. We are called admit the patient further evaluation and treatment. Recommended full-strength aspirin stat which was administered upon her request. Cardiology consultation was obtained by the ER provider they spoke with Dr. Kenyon. He will see the patient in consultation-per the ER provider heparin at this time was recommended to hold off till cardiology sees. Will do serial troponins and echocardiogram. Patient has stress test October 2022 which was negative. This was a stress echo and he achieved 90% of work capacity. Allergies Allergy/AdvReac Type Severity Reaction Status Date / Time bupropion [From Wellbutrin] AdvReac Intermediate Palpitation Verified 06/30/24 09:43 s simvastatin [From Zocor] AdvReac Intermediate Cramping Verified 06/30/24 09:43 of the Muscles sitagliptin [From Januvia] AdvReac Intermediate Palpitation Verified 06/30/24 09:43 s trazodone AdvReac Intermediate BAD Verified 06/30/24 09:43 DREAMS, HEART PALPITATIONS Home Medications Medication Instructions Recorded Confirmed Type coenzyme Q10 100 mg capsule 200 mg PO QAM 03/22/21 08/22/24 History (CoQ-10) ikrutiizhpxm-uabzkjfm-ordhzz tablet 1 tab PO QAM 03/22/21 08/22/24 History aspirin 81 mg tablet,delayed 81 mg PO QAM 10/04/21 08/22/24 History release metformin 500 mg tablet,extended 500 mg PO HS 08/05/22 08/22/24 History release 24 hr omega-3 acid ethyl esters 1 gram 2 g PO BID 08/05/22 08/22/24 History capsule tamsulosin 0.4 mg capsule 0.4 mg PO HS 08/05/22 08/22/24 History atorvastatin 40 mg tablet 40 mg PO DAILY #30 tabs 10/30/22 08/22/24 Rx amlodipine 5 mg tablet 5 mg PO DAILY 06/29/23 08/22/24 History metoprolol succinate 25 mg 25 mg PO DAILY 06/29/23 08/22/24 History tablet,extended release 24 hr (Toprol XL) cyclobenzaprine 5 mg tablet 5 mg PO TID 04/18/24 08/22/24 History ropinirole 1 mg tablet 3 mg PO HS 04/18/24 08/22/24 History gabapentin 300 mg capsule 300 mg PO TID 08/22/24 08/22/24 History Past Med/Surg History Problem List (Updated 08/22/24 @ 15:00 by Diane Pereira DO) Elevated troponin (Acute) Chest pain (Acute) Mitral and aortic regurgitation Iron deficiency Diabetic peripheral neuropathy RLS (restless legs syndrome) Idiopathic peripheral neuropathy High coronary artery calcium score Diverticulitis Chest pain (Acute) Hypertension (Acute) Coronary artery disease (Acute) H/O right inguinal hernia repair (10/24/21) Open Right Inguinal Hernia Repair with Mesh, excision of cord lipoma, Inje ction Kenalog Left Groin(Right) - Justin Roldan DO 10/24/2021 Encounter for pre-operative examination Abdominal pain (Acute) Acute pancreatitis Diabetes mellitus High serum lactate Diverticulosis Elevated lactic acid level (Acute) Hyperglycemia (Acute) Incarcerated right inguinal hernia Left groin pain Hypercholesteremia HTN (hypertension) Medical History Diverticulosis Diabetes Back pain Pancreatitis Surgical History Hx of oral surgery History of cataract surgery History of colonoscopy History of hernia surgery Family History Mother Family history of diabetes mellitus Social History Smoking Status: Former smoker Tobacco Type: Cigarettes Second Hand Exposure: No; Do You Dip or Chew Tobacco: No; Hx Alcohol Use: No Hx Substance Use: No Preferred Language: Belarusian Communication Ability: Effective Visual Impairment: No Limitations Director Of [employer] Required: No Beliefs That Will Affect Care: None marital status: Current Living Situation: Spouse Current Living Situation Comment: home with spouse current occupational status: retired Feels Safe at Home: Yes during the past year weight has: decreased > 10 lbs Assistive Devices: None Review of Systems Review of Systems: A 10 point review of system was obtained and unless otherwise stated here or in history of present illness are negative and noncontributory to chief complaint. Physical Exam Physical Exam: In General: In general 76-year-old male was alert and oriented x 3, examination. He appears her stated age and appears in no acute distress. HEENT: Normocephalic atraumatic pupils are equal round and reactive to light bilaterally. No scleral icterus no conjunctival injection external auditory canals are patent septum is in the midline nose is without discharge oral mucosa is pink and moist without lesion. NECK: Supple no rigidity no lymphadenopathy no thyromegaly no carotid bruits no JVD no masses. HEART: Regular rate and rhythm I do not appreciate any ectopy or rub. No murmur. LUNGS: Clear to auscultation bilaterally and anteriorly with no evidence of adventitious sounds/wheezes rales or rhonchi. ABDOMEN: Soft nontender, no rebound, no peritoneal signs, positive bowel sounds, no appreciable organomegaly. EXTREMITIES: Intact, no peripheral cyanosis, clubbing or edema. Strength is 5 out of 5 in extremities x4. NEUROLOGICAL: Cranial nerves II through XII are grossly intact with no focal deficit elicited upon examination. No tremor. Results & Data Results & Data Vital Signs (Past 12 Hours) Vital Signs Temp Pulse Pulse Resp BP BP Pulse Ox 08/22/24 15:16 96 08/22/24 15:15 56 L 18 117/69 97 08/22/24 14:45 57 L 08/22/24 14:30 118/92 08/22/24 14:15 55 L 17 97 08/22/24 14:12 50 L 16 97 08/22/24 14:00 130/79 08/22/24 13:56 66 20 98 08/22/24 13:38 60 16 97 08/22/24 13:05 56 L 20 96 08/22/24 12:56 55 L 15 96 08/22/24 12:30 122/67 08/22/24 12:30 122/67 08/22/24 12:29 63 15 97 08/22/24 12:15 122/69 08/22/24 12:15 122/69 08/22/24 12:14 59 L 19 97 08/22/24 12:01 121/75 08/22/24 12:01 121/75 08/22/24 11:50 58 L 17 96 08/22/24 11:45 137/72 08/22/24 11:44 61 23 97 08/22/24 11:32 57 L 21 96 08/22/24 11:32 95/72 L 08/22/24 11:32 95/72 L 08/22/24 11:32 95/72 L 08/22/24 11:15 134/73 08/22/24 11:15 134/73 08/22/24 11:14 62 20 95 08/22/24 11:11 57 L 20 94 08/22/24 11:00 139/80 08/22/24 11:00 139/80 08/22/24 11:00 139/80 08/22/24 10:47 59 L 27 H 96 08/22/24 10:45 124/64 08/22/24 10:45 124/64 08/22/24 10:35 61 22 96 08/22/24 10:33 62 15 97 08/22/24 10:30 122/62 08/22/24 10:30 122/62 08/22/24 10:25 124/64 08/22/24 10:25 124/64 08/22/24 10:25 124/64 08/22/24 10:19 65 08/22/24 10:18 63 23 97 08/22/24 10:05 36.4 C L 64 20 138/69 98 O2 Del Method 08/22/24 15:16 Room Air 08/22/24 15:15 Room Air 08/22/24 14:45 08/22/24 14:30 08/22/24 14:15 08/22/24 14:12 08/22/24 14:00 08/22/24 13:56 08/22/24 13:38 08/22/24 13:05 08/22/24 12:56 08/22/24 12:30 08/22/24 12:30 08/22/24 12:29 08/22/24 12:15 08/22/24 12:15 08/22/24 12:14 08/22/24 12:01 08/22/24 12:01 08/22/24 11:50 08/22/24 11:45 08/22/24 11:44 08/22/24 11:32 08/22/24 11:32 08/22/24 11:32 08/22/24 11:32 08/22/24 11:15 08/22/24 11:15 08/22/24 11:14 08/22/24 11:11 08/22/24 11:00 08/22/24 11:00 08/22/24 11:00 08/22/24 10:47 08/22/24 10:45 08/22/24 10:45 08/22/24 10:35 08/22/24 10:33 08/22/24 10:30 08/22/24 10:30 08/22/24 10:25 08/22/24 10:25 08/22/24 10:25 08/22/24 10:19 08/22/24 10:18 08/22/24 10:05 Room Air Code Status & VTE Plan Code Status Full code. VTE Prophylaxis Plan VTE Prophylaxis will be ordered: Yes PG Care Time/CCT Total # of Minutes Spent Total Time Spent with Patient: Total time spent is greater than 50% in coordination of care (as documented) at patient's floor/unit and/or counseling patient: Coding Level of Care Code 78915 INT INP/OBS CARE 3/75MIN Diagnoses Chest pain R07.9
[2024-08-22] MEDS: MAGNESIUM SULFATE / D5W 1 GM/100 ML BAG IV SCH (16:36)
--- NOTE | 2024-08-22 17:29 | Electrocardiogram Report ---
Test Reason : Blood Pressure : */* mmHG Vent. Rate : 53 BPM Atrial Rate : 53 BPM P-R Int : 180 ms QRS Dur : 96 ms QT Int : 474 ms P-R-T Axes : 54 38 57 degrees QTcB Int : 444 ms Sinus bradycardia Otherwise normal ECG When compared with ECG of 22-Aug-2024 10:13, No significant change was found Confirmed by Stephan Kenyon ([id number]) on 08/22/2024 5:29:35 PM Referred By: REFERRED SELF Confirmed By: Stephan Kenyon
[2024-08-22] MEDS: INSULIN ASPART PER UNIT CHARGE SC SCH (19:15)
[2024-08-22] MEDS: GABAPENTIN 300 MG CAP PO SCH (20:56)
[2024-08-22] MEDS: rOPINIRole HCL 1 MG TABLET PO SCH (20:57)
[2024-08-22] MEDS: CYCLOBENZAPRINE HCL 5 MG TAB PO SCH (20:57)
[2024-08-22] MEDS: TAMSULOSIN HCL 0.4 MG CAP PO SCH (20:57)
[2024-08-22] MEDS: LANTUS PER UNIT CHARGE SQ SCH (21:15)
[2024-08-23] MEDS ORDERED: NITROGLYCERIN SL 0.4 MG/TAB TAB SL PRN (00:22)
[2024-08-23] MEDS: SODIUM CHLORIDE 0.9% 250 ML IV ONE (00:51)
[2024-08-23 04:23] LABS: Basophils # (auto) 0.08 K/uL (0.00-0.20); Basophils % (auto) 0.9 %; Eosinophils # (auto) 0.24 K/uL (0.00-0.50); Eosinophils % (auto) 2.7 %; Hematocrit (blood only) 39.8 % (42.0-52.0); Hemoglobin 13.6 g/dl (14.0-18.0); Immature Granulocytes # (auto) 0.04 K/uL (0.01-0.20); Immature Granulocytes % (auto) 0.4 %; Lymphocytes # (auto) 2.16 K/uL (1.20-3.40); Mean Corpuscular Hemoglobin 28.9 pg (25.0-34.0); Mean Corpuscular Hgb Conc 34.2 g/dL (32.0-36.0); Mean Corpuscular Volume 84.7 fL (80.0-100.0); Mean Platelet Volume 9.4 fL (9.4-12.4); Monocytes # (auto) 0.87 K/uL (0.11-0.59); Monocytes % (auto) 9.7 %; Neutrophils # (auto) 5.62 K/uL (1.40-6.50); Neutrophils % (auto) 62.3 %; Platelet Count 222 K/uL (130-400); RDW Coefficient of Variation 12.4 % (11.5-14.5); RDW Standard Deviation 37.3 fL (36.4-46.3); White Blood Count 9.01 K/ul (4.8-10.8)
[2024-08-23 04:31] LABS: Albumin Globulin Ratio 1.5 (0.9-2); Albumin Level 4.2 gm/dl (3.4-5.0); BUN Creatinine Ratio 15.3 (10-20); Bilirubin,Total 0.8 mg/dl (0.2-1.0); Calcium 9.7 mg/dl (8.6-10.3); Chol HDL Ratio 3.5 (0-5); Globulin 2.8 gm/dl (2.5-4.0); Potassium 3.5 mmol/L (3.5-5.1)
[2024-08-23 04:46] LABS: Troponin I High Sensitivity 94.1 pg/ml (0-20)
[2024-08-23 05:01] LABS: Magnesium 1.8 mg/dl (1.7-2.4)
[2024-08-23 07:04] VITALS: BP 147/77; RESP 18; TEMP 97.9; O2SAT 97
[2024-08-23 07:34] VITALS: PULSE 57
[2024-08-23] MEDS: ATORVASTATIN 40 MG TAB PO SCH (08:38)
[2024-08-23] MEDS: METOPROLOL SUCC 25MG EXT REL TAB PO SCH (08:38)
[2024-08-23] MEDS: CEROVITE ADV FORMULA TAB PO SCH (08:38)
[2024-08-23] MEDS: ASPIRIN 81 MG ECTAB PO SCH (08:38)
[2024-08-23] MEDS: amLODIPine BESYLATE 5 MG TAB PO SCH (08:39)
--- NOTE | 2024-08-23 08:58 | Cardiology Consultation ---
Date of Consultation August 23, 2024 Assessment & Plan (1) Elevated troponin: (2) Chest pain: (3) Diabetes mellitus: (4) Hypercholesteremia: (5) HTN (hypertension): Plan 68-year-old man with multiple vascular risk factors but somewhat atypical chest discomfort admitted with mild troponin elevation and normal serial ECGs. Absence of ECG changes and flat troponin curve during waxing and waning chest discomfort weighed quite strongly against acute coronary syndrome. In order tube further risk stratify, patient underwent stress echocardiogram just now and walked for 6 minutes on Esvin protocol with no change in his 1/10 persistent chest discomfort, no ECG changes or ectopy, and unremarkable resting and postexercise wall motion on echocardiogram. Therefore, no evidence of inducible myocardial ischemia at good workload. Suspect some sort of post viral URI bronchitic phenomenon, recommend kgyd-ooe-gqknbzl antitussive to suppress cough and could use ibuprofen 400 mg 3 times daily with meals for the next day or so to reduce bronchial and/or intercostal muscle inflammation. 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 History of Present Illness Reason for Consultation: ?NSTEMI Requesting Physician: Nino Tracy Attending Physician: Nino Tracy History of Present Illness 69-year-old man with multiple vascular risk factors (DM, HTN, dyslipidemia) but no known cardiac history who was admitted with mid sternal region chest discomfort, mildly elevated troponin (90 range), and normal ECG despite ongoing chest pain. Of note, he had a recent viral URI and has a persistent cough. He woke at 3 in the morning with 5/10 severity midsternal chest discomfort which felt like a pressure, this gradually improved until it was 1/10 but never resolved. He denies any diaphoresis, dyspnea, palpitations, or nausea. No history of reflux type symptoms. Yesterday during the day, his discomfort briefly increased to 3/10 severity, and ECG at that time was unremarkable. Troponin ranged from 53- 94 on 5 draws. At the time of my evaluation last evening and again this morning, he had only very minimal (1/10) vague chest discomfort and an intermittent nonproductive cough. Allergies Allergy/AdvReac Type Severity Reaction Status Date / Time bupropion [From Wellbutrin] AdvReac Intermediate Palpitation Verified 06/30/24 09:43 s simvastatin [From Zocor] AdvReac Intermediate Cramping Verified 06/30/24 09:43 of the Muscles sitagliptin [From Januvia] AdvReac Intermediate Palpitation Verified 06/30/24 09:43 s trazodone AdvReac Intermediate BAD Verified 06/30/24 09:43 DREAMS, HEART PALPITATIONS Home Medications Medication Instructions Recorded Confirmed Type coenzyme Q10 100 mg capsule 200 mg PO QAM 03/22/21 08/22/24 History (CoQ-10) lsxhvysicsap-mmtuyxqt-zeuqcc tablet 1 tab PO QAM 03/22/21 08/22/24 History aspirin 81 mg tablet,delayed 81 mg PO QAM 10/04/21 08/22/24 History release metformin 500 mg tablet,extended 500 mg PO HS 08/05/22 08/22/24 History release 24 hr omega-3 acid ethyl esters 1 gram 2 g PO BID 08/05/22 08/22/24 History capsule tamsulosin 0.4 mg capsule 0.4 mg PO HS 08/05/22 08/22/24 History atorvastatin 40 mg tablet 40 mg PO DAILY #30 tabs 10/30/22 08/22/24 Rx amlodipine 5 mg tablet 5 mg PO DAILY 06/29/23 08/22/24 History metoprolol succinate 25 mg 25 mg PO DAILY 06/29/23 08/22/24 History tablet,extended release 24 hr (Toprol XL) cyclobenzaprine 5 mg tablet 5 mg PO TID 04/18/24 08/22/24 History ropinirole 1 mg tablet 3 mg PO HS 04/18/24 08/22/24 History gabapentin 300 mg capsule 300 mg PO TID 08/22/24 08/22/24 History Patient History Medical History Diverticulosis Diabetes Back pain Pancreatitis Admitted 06/2021 Surgical History Hx of oral surgery tooth extraction, complete mouth History of cataract surgery bilat History of colonoscopy History of hernia surgery 07/20/1993 VERENICE Macdonald Family History Mother Family history of diabetes mellitus Social History Smoking Status: Former smoker Tobacco Type: Cigarettes Second Hand Exposure: No; Do You Dip or Chew Tobacco: No; Hx Alcohol Use: No Hx Substance Use: No Preferred Language: Algerian Communication Ability: Effective Visual Impairment: No Limitations 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 Afebrile. BP 147/77 mmHg. Pulse 57 bpm and regular. Respirations 18 unlabored. Skin: no ecchymoses or generalized lesions. HEENT: unremarkable. Neck: JVP at the clavicle at 90 degrees, no carotid bruits. Lungs: clear. Chest wall: No reproducible tenderness. Cardiac: regular rhythm, normal S1-2, no murmur. Abdomen: benign. Extremities: no edema, pulses intact. Neurologic: normal affect and conversation, nonfocal. Results & Data Vital Signs (Past 12 Hours) Vital Signs Temp Pulse Pulse Resp BP BP Pulse Ox 08/23/24 07:34 57 L 08/23/24 07:03 97.9 F 61 18 147/77 H 97 08/23/24 03:16 97.7 F 60 16 127/74 95 08/23/24 01:00 53 L 125/75 96 08/22/24 23:17 97.7 F 61 18 107/61 95 O2 Del Method 08/23/24 07:34 08/23/24 07:03 Room Air 08/23/24 03:16 Room Air 08/23/24 01:00 Room Air 08/22/24 23:17 Room Air Laboratory Results Troponins as noted in HPI. Hemoglobin 13.6 with normal white count and platelet count. Normal electrolytes, BUN 17, creatinine 1.11. LDL 62. Diagnostic Findings Chest x-ray showed atelectasis left base, otherwise unremarkable. PG Care Time/CCT Total # of Minutes Spent Total Time Spent with Patient: Total time spent is greater than 50% in coordination of care (as documented) at patient's floor/unit and/or counseling patient: Coding Level of Care Code 97665 IN/OBS CONSULT LVL 4,60M Diagnoses Elevated troponin R79.89 Chest pain R07.9 Diabetes mellitus E11.9 Hypercholesteremia E78.00 HTN (hypertension) I10
[2024-08-23] MEDS ORDERED: NON-FORMULARY MEDICATION (Coenzyme Q10 [Coq-10] 100 mg Capsule) PO SCH (09:00)
--- NOTE | 2024-08-23 09:37 | XCELERA ---
[id number]
--- NOTE | 2024-08-23 10:27 | XCELERA ---
[id number] \\[email or web address]\[id number]
--- NOTE | 2024-08-23 11:04 | Discharge Summary ---
Discharge Summary Date of Service August 23, 2024 Principal Dx & Hospital Course #1 = Principal Diagnosis (1) Chest pain: Assessment: 1. Chest pain with elevated troponin. Concern over possible NSTEMI when admitted. Thankfully troponin's remained low: 53-94. Cardiology was consulted: stress exercise echo completed and this was negative. Of note he also had a negative Stress echocardiogram for ischemia in October 2022. likely post viral cough causing pleuritis, will do a trial of NSAID's for a day or 2 with meals. recommend followup with PCP in 1-2 weeks. 2. Diabetes mellitus type 2. Appears uncontrolled. Random blood glucose 275 mg/dL. Basal bolus insulin regimen has been ordered. A1c in the morning. 3. Hypertension. Continue same medication 4. Dyslipidemia. Continue home statin therapy. 5. History of diabetic neuropathy. 6. Hypomagnesemia. 2 g of mag sulfate ordered for replacement. Admission HPI Per Admitting Provider This 69-year-old male around 3 AM today developed left-sided chest pain radiated across the precordium. But left worse greater than right. Presented the ER today for further evaluation and treatment. First troponin was 53.1. Second opponent 54.2. EKG was nonacute. Magnesium was found to be 1.5. Course emergency department he received topical nitroglycerin. Protonix. Famotidine. Aspirin. We are called admit the patient further evaluation and treatment. Recommended full-strength aspirin stat which was administered upon her request. Cardiology consultation was obtained by the ER provider they spoke with Dr. Kenyon. He will see the patient in consultation-per the ER provider heparin at this time was recommended to hold off till cardiology sees. Will do serial troponins and echocardiogram. Patient has stress test October 2022 which was negative. This was a stress echo and he achieved 90% of work capacity. Discharge Exam Constitutional WD/WN, vitals as above Neck trachea midline, no thyromegaly Respiratory normal respiratory effort, lungs clear to auscultation Discharge Plan Discharge Items Patient Disposition: Home - Self-Care Reason For Visit: CP Discharge Diagnosis: chest pain Activity: Resume your previous activity Non-emergency contact: Primary Care Provider Call non-emergency contact if: you have any medication questions Follow-up/Referrals: Isidro Tomas [Primary Care Provider] - 08/25/24 10:00 am (Hospital follow up appointment scheduled on 08/25/24 at 10:[address] Lugo. Arrival time is 9:45) Diet: Carb Consistent or DM2 Addtl Attending Provider Instructions: rYou were evaluated for chest pain and thankfully this was not related to a heart attack. For your pain we recommend pcvh-sqr-edijfud cough medicine (anti-tussives such as dextromethorphan) to suppress cough and could use ibuprofen 400 mg 3 times daily with meals for the next day or so to reduce bronchial and/or intercostal muscle inflammation. 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 Pending Studies at Discharge: No Stand-Alone Forms: [facility], Smoking Cessation Medications and DC Order Prescriptions: Continued aspirin 81 mg tablet,delayed release (DR/EC) 81 mg PO QAM metoprolol succinate [Toprol XL] 25 mg tablet extended release 24 hr 25 mg PO DAILY amlodipine 5 mg tablet 5 mg PO DAILY cyclobenzaprine 5 mg tablet 5 mg PO TID ropinirole 1 mg tablet 3 mg PO HS beuuwszejxdj-kivwoqhk-jchdav Tablet 1 tab PO QAM coenzyme Q10 [CoQ-10] 100 mg Capsule 200 mg PO QAM tamsulosin 0.4 mg capsule 0.4 mg PO HS metformin 500 mg tablet extended release 24 hr 500 mg PO HS omega-3 acid ethyl esters 1 gram capsule 2 g PO BID atorvastatin 40 mg tablet 40 mg PO DAILY Qty: 30 2RF gabapentin 300 mg capsule 300 mg PO TID Discharge Orders: Discharge Order (Routine); Ordered 08/23/24 Ordered By: Nino Tracy Admission Data Admit Date/Time: 08/22/24 16:15 Attending Provider: Nino Tracy Admit Provider: Wisam Recinos Primary Care Provider: Isidro Tomas Other Providers: Wisam Recinos; Stephan Kenyon Hospital Stay Data Consultations 08/22/24 14:50 ED Decision to Admit Stat 08/22/24 16:15 Consult Cardiology Routine Pending Results Patient Have Any Pending Studies at Discharge: No Discharge Instructions Given to Patient (Per Discharging Provider) rYou were evaluated for chest pain and thankfully this was not related to a heart attack. For your pain we recommend uzhk-kqy-dbtinfz cough medicine (anti-tussives such as dextromethorphan) to suppress cough and could use ibuprofen 400 mg 3 times daily with meals for the next day or so to reduce bronchial and/or intercostal muscle inflammation. 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 Carcamo. Total Time Total Time Spent Total Time Spent (In Minutes): 32 Coding Level of Care Code 48584 INP/OBS DISCH >30 MIN Diagnoses Chest pain R07.9
--- NOTE | 2024-08-24 09:10 | Electrocardiogram Report ---
Test Reason : Blood Pressure : */* mmHG Vent. Rate : 56 BPM Atrial Rate : 56 BPM P-R Int : 180 ms QRS Dur : 96 ms QT Int : 448 ms P-R-T Axes : 45 26 53 degrees QTcB Int : 432 ms Sinus bradycardia Otherwise normal ECG When compared with ECG of 22-Aug-2024 15:31, No significant change was found Confirmed by Stephan Kenyon ([id number]) on 08/24/2024 9:09:58 AM Referred By: REFERRED SELF Confirmed By: Stephan Kenyon
[2024-08-25 06:43] LABS: Estimated Average Glucose 151 mg/dl; Hemoglobin A1C 6.9 % (4.5-5.6)
== END 2024-08-23 11:43 | disposition home or self-care (01) ==
LOC: ED 10:00 → SUATTDRO 16:15 → 2E 16:15 → INTOOBSV 16:15 → 2E 17:28